=== PATIENT | female | born 1995 | race Caucasian/White ===

== ENCOUNTER 2019-03-28 22:56 | Emergency (ER) | payer BC, SELFPAY ==
[2019-03-28 22:58] VITALS: BP 159/91; PULSE 98; RESP 18; TEMP 36.2; O2SAT 98; BMI 34.9
--- NOTE | 2019-03-28 23:23 | ED.DCSUM_ITS ---
- ER Visit Summary Date of Service: 03/28/19 Chief Complaint: Laceration History of Present Illness: The patient is a 23 F who cut her left index finger on hedge tremors about 6 hours ago. Unknown tetanus status. Physical Examination: Patient is a 1.5 cm partial-thickness laceration over the proximal phalanx of her left index finger, radial side. Neurovascular intact distally. Good range of motion. No deformities. No other findings. Test Results: None indicated Emergency Department Course and Treatment: Tetanus updated. Prophylactic treatment with Keflex. Digital block was performed. Wound was cleaned and explored. Closed with 2 simple interrupted sutures. Prescribed Keflex. Given wound care instructions. Outpatient follow-up. Return right away for any complications like infection. Treatment Plan: As above Disposition: Discharge Impression: 1. 1.5 cm laceration left index finger, simple This note was generated with [employer] dictation software. It may contain incorrect words, spelling, and punctuation that were not noted in review of the chart prior to signing ED Disposition - Plan for ED Patient: Referrals: NOT,DEFINED [Primary Care Provider] -
--- NOTE | 2019-03-28 23:23 | ED.DEP ---
ED Disposition - Plan for ED Patient: Instructions: ED Laceration Hand Prescriptions: Cephalexin [Keflex] 500 mg PO Q6 3 Days #12 cap Referrals: NOT,DEFINED [Primary Care Provider] -
[2019-03-28] MEDS: Diphth,Pertuss(Acell),Tet Vac 0.5 ML Vial IM (23:29)
[2019-03-28] MEDS: Cephalexin 250 MG Capsule 500 MG PO (23:29)
[2019-03-28 23:51] VITALS: BP 159/91; PULSE 98; RESP 18; O2SAT 98
== END 2019-03-28 23:51 | disposition home or self-care (01) ==
LOC: ED 23:28
PROVIDERS: Emergency Provider Emergency Medicine
DX: S61.211A Laceration without foreign body of left index finger without damage to nail, initial encounter (principal); W26.8XXA Contact with other sharp object(s), not elsewhere classified, initial encounter; Y93.9 Activity, unspecified; Y92.9 Unspecified place or not applicable
CPT/HCPCS: 12001; 90471; 90715; 99284

== ENCOUNTER 2025-07-19 10:57 | Observation (INO) | payer BC, SELFPAY ==
[2025-07-19] VITALS (7 sets, daily range): BP systolic 117–131; BP diastolic 71–87; PULSE 80–98; RESP 15–18; TEMP 36.1–37.7; O2SAT 95–100; BMI 36.1; BMI 36.8
--- NOTE | 2025-07-19 11:46 | US_ITS ---
PROCEDURE: GALLBLADDER N/A REASON FOR EXAM: PAIN Epigastric and right upper quadrant pain. TECHNIQUE: Procedure Code: Ultrasound modality: US Procedure: GALLBLADDER COMPARISON: None FINDINGS: Liver: Diffusely echogenic suggesting fatty infiltration. Gallbladder: Solitary gallstone measuring 1 cm x 0.7 cm x 0.6 cm. Trace amount of pericholecystic fluid. Common bile duct: Normal measuring 3 mm . Pancreas: Obscured by bowel gas. Other: Visualized portions of the right kidney are unremarkable. No right upper quadrant ascites. US/Gallbladder IMPRESSION: Fatty infiltration of the liver. Solitary gallstone. Trace amount of pericholecystic fluid. Reading Location: [facility]
--- NOTE | 2025-07-19 11:46 | ED.VIS.GI ---
HPI HPI - GI History of Present Illness Chief Complaint: Abd Pain Detail of Chief Complaint: Epigastric and right upper quadrant abdominal pain. Informant: patient and spouse/S.O. Abdominal Pain/Flank Pain Onset: Days Context: Gradual Onset Timing: Intermittent Quality: Aching Location: Epigastric and RUQ Current Severity: Mild Maximum Severity: Mild Nausea/Vomiting/Emesis GI Symptom: Positive for Nausea and Vomiting Quality: Negative for Blood streaks, Coffee ground or Hematemesis Severity: Mild Diarrhea/Melena/Hematochezia GI Symptom: Positive for Diarrhea Stool Quality: Positive for Loose; Negative for Black, Maroon or BRB per rectum Severity: Mild Associated Symptoms Associated Symptoms: Negative for Dysuria, Frequency, Hematuria or Urgency Narrative Narrative: 29-year-old female no CeeNU past medical history. No prior abdominal or pelvic surgeries. States she has had epigastric and mild right upper quadrant abdominal pain since Thursday around 3 PM. Associated nausea, vomiting diarrhea yesterday. No melena. No hematemesis. No recent weight loss. No prior abdominal or pelvic surgeries. [facility] recently had a workup that was basically negative with a negative CAT scan. She believes they thought she may have an ulcer. She is concerned it could be her gallbladder due to her mother and brother both had cholecystectomies. She denies any fever. No dysuria. I reviewed the labs and CAT scan from the outside facility that were done around the . Prior similar symptoms: Yes Recent Illness/Hospitalization: No PFSH PFSH Medical History no medical history no medical history Home Medications Medication Instructions Recorded Last Taken Type NK 07/19/25 Unknown History Allergy/AdvReac Type Severity Reaction Status Date / Time No Known Allergies Allergy Verified 07/19/25 11:12 Family History Maternal Grandfather Colon cancer Grandfather Stomach cancer Surgical History no surgical history Social History household members: spouse Smoking Status: Former smoker ROS ROS ED ROS Narrative Abdominal pain. Nausea vomiting and diarrhea. Constitutional Constitutional ED: Denies chills, fever(s) or subjective ENT ENT ED: Denies ear pain Cardiovascular Cardiovascular: Denies chest pain Respiratory/Chest Respiratory/Chest: Denies cough or dyspnea Gastrointestinal Gastrointestinal: Reports abdominal pain, diarrhea, nausea and vomiting; Denies constipation or melena Genitourinary Genitourinary ED: Denies dysuria or hematuria Musculoskeletal Musculoskeletal: Denies arthralgias Integumentary Denies abscess Neurologic Neurologic: Denies headache(s) Psychiatric Psychiatric: Denies anxiety Endocrine Endocrinology: Denies polydipsia Hematologic/Lymphatic Hematologic/Lymphatic: Denies easy bleeding Allergic/Immunologic Allergic/Immunologic ED: Denies mouth swelling, tongue swelling or urticaria EXAM Physical Exam Narrative Exam Narrative: 29-year-old female vital signs are stable afebrile. She is in no acute distress. Significant other is at the bedside. H EENT exam pupils round react to light. Moist mutes membranes. Neck nontender. No lymphadenopathy. Lungs clear to auscultation bilaterally. Heart regular rhythm no murmur. Chest wall ribs nontender. Abdomen soft nondistended normal bowel sounds without peritoneal signs. She has mild epigastric and right upper quadrant tenderness with no Moore sign. No hernia or mass. No obstruction. Right lower quadrant is completely nontender. Moving all 4 extremities. Normal strength. Nontender no edema. Back nontender. Neurologically she is awake alert. Answering questions and following commands. Const Vital Signs: 07/19/25 10:58 07/19/25 14:00 Temperature 96.9 F L Temperature Source Temporal Pulse Rate 94 82 Respiratory Rate 16 15 Blood Pressure 128/75 H 131/74 H Blood Pressure Mean 92 93 Pulse Ox 100 100 Oxygen Delivery Method Room Air Positive well nourished and well developed; Negative for cachectic, contractures or unkempt General Appearance ED: well developed and NAD; Negative for unkempt, cachectic, contractures or pallor Nutritional Appearance: Negative for cachectic HEENT Reports moist mucous membranes normocephalic and atraumatic Eyes EOMs intact bilaterally Neck no lymphadenopathy, supple and no JVD Resp normal respiratory effort and clear to auscultation bilaterally Cardio regular rate, regular rhythm, S1 normal heart sound, S2 normal heart sound and no murmurs GI non-distended and no masses; Negative for non-tender GI Narrative: Mild epigastric and right upper quadrant tenderness. No Moore sign. No peritoneal signs. Inspection: Negative for abdominal distention Auscultation: normoactive bowel sounds Palpation: soft and tender; Negative for guarding, rigid, hepatomegaly, splenomegaly, hernia, mass, pulsatile mass or rebound tenderness present Back/Spine no CVA tenderness Extremity full ROM General Extremety ED: Negative for edema or tenderness General Extremity: Negative for edema Neuro CN's II-XII intact bilaterally and moves all extremities Sensorium / Orientation: alert, oriented to person, oriented to place and oriented to time Motor Exam: strength 5/5 throughout Psych mental status grossly normal and thought process normal Appearance: Negative for unkempt Skin no wounds General Skin Exam: Negative for jaundice or pallor Rashes: no rashes MDM MDM MDM Narrative Medical decision making narrative: 29-year-old female with abdominal pain. Exam history are consistent with a possible gastritis versus reflux versus gallbladder disease. I do not think appendicitis. Clinically does not have obstruction. She is already had a CAT scan and labs at the other facility which I have reviewed. She will be given GI cocktail and Protonix. Screening labs and an ultrasound of the right upper quadrant. She already had a negative test several days ago. Repeat exam at around 2:46 PM patient does seem to be having more right upper quadrant abdominal pain. With deep palpation she has pain but not a Moore sign. She has elevated white count. General surgery on page. I spoke to Dr. Heri Zaman of general surgery. To be done evaluate the patient. The current plan is to admit her for cholecystectomy. History & Record Review Discussion w/independent historian: Family Additional record(s) reviewed:: Prior inpatient record, Prior outpatient record, Prior ED visit and Prior labs Lab Data Attestation: I reviewed the patient's lab results. Lab results narrative: CBC shows a white count of 21.3. H&H 12 and 37. Platelets 322. Electrolytes show gap 15. BUN and creatinine of 5 and 0.5. Glucose 124. Liver enzymes show an elevated AST of 38. Elevated ALT of 75. Lipase is 12. Gallbladder ultrasound shows a solitary gallstone. Only trace PeriCholecystic fluid. Labs: Laboratory Results - last 24 hr 07/19/25 12:15 WBC 21.3 H RBC 4.50 Hgb 12.5 Hct 37.0 MCV 82.2 MCH 27.8 MCHC 33.8 RDW Std Deviation 40.6 RDW Coeff of Delaney 13.6 Plt Count 322 MPV 9.7 Immature Gran % (Auto) 0.500 Neut % (Auto) 79.1 H Lymph % (Auto) 4.8 L Meeker % (Auto) 8.2 Eos % (Auto) 7.2 H Baso % (Auto) 0.2 Absolute Neuts (auto) 16.9 H Absolute Lymphs (auto) 1.02 Nucleated RBC % 0 Platelet Estimate ADEQUATE Sodium 135 Potassium 3.3 Chloride 98 Carbon Dioxide 22.2 Anion Gap 15 BUN 5 Creatinine 0.59 L Estim Creat Clear Calc 166.28 Est GFR (MDRD) Non-Af 123 BUN/Creatinine Ratio 8.4 L Glucose 124 H Calcium 9.5 Total Bilirubin 0.92 AST 38 H ALT 75 H Alkaline Phosphatase 60 Total Protein 7.3 Albumin 4.2 Globulin 3.0 Albumin/Globulin Ratio 1.4 Lipase 12 L Radiography Diagnostic Testing: Clinical Impression(s) from Imaging Studies Gallbladder Ultrasound 07/19/25 11:46 IMPRESSION: Fatty infiltration of the liver. Solitary gallstone. Trace amount of pericholecystic fluid. Reading Location: [facility] Discharge Plan Triage Chief Complaint: Abd Pain ED Provider: Mal Tran Dx/Rx/DC Orders Clinical Impression: Abdominal pain, Leukocytosis, Gallstone Prescriptions: No Action NK Primary Care Provider: Chuckie Ochoa Referrals: Care Physician,No Primary [Non-Staff] - Print Language: [place]ese Disposition Disposition: [facility]
[2025-07-19] MEDS: Lidocaine 2% Viscous15 ML UDC 15 ML PO (11:57)
[2025-07-19 12:20] LABS: Hematocrit 37.0 % (37-47); Hemoglobin 12.5 g/dL (12.0-15.0); Immature Granulocytes Count 0.100 X10^3/uL (0.0-0.0); Mean Corp Hgb Conc 33.8 g/dL (32-36); Mean Corpuscular Volume 82.2 fL (81-99); Mean Platelet Vol. 9.7 fl (6.2-12.0); NRBC Flagged by Analyzer 0 % (0-5); POSITIVE DIFFERENTIAL YES; POSITIVE MORPHOLOGY YES; Platelet Count 322 K/mm3 (150-450); RBC Distribution Width CV 13.6 % (11.6-14.6); RBC Distribution Width SD 40.6 fl (35.1-43.9); Red Blood Count 4.50 M/mm3 (4.2-5.4); White Blood Count 21.3 K/mm3 (4.4-11.0)
[2025-07-19 12:59] LABS: AST(SGOT) 38 U/L (<=31); Alanine Aminotransfer ALT/SGPT 75 U/L (<=34); Albumin, Serum 4.2 g/dL (3.5-5.0); Alkaline Phosphatase 60 U/L (35-104); Anion Gap 15 (5-15); BUN 5 mg/dL (4-19); BUN/Creat Ratio 8.4 RATIO (10-20); Calcium,Total 9.5 mg/dL (7.6-11.0); Carbon Dioxide 22.2 mmol/L (21.0-32.0); Chloride 98 mmol/L (98-108); Estimated Creatinine Clearance 166.28 ml/min (50-250); Globulin 3.0 g/dL (2.2-4.2); Glucose 124 mg/dL (70-99); Lipase 12 U/L (13-75); Potassium 3.3 mmol/L (3.3-5.1)
[2025-07-19 13:38] LABS: Differential Indicated SCAN CRITERIA MET
[2025-07-19] MEDS: Ketorolac 30 MG/ML Syringe IV (15:23)
--- NOTE | 2025-07-19 16:12 | HP.PCM_ITS ---
HPI - General General Date of Admission: 07/19/25 Date of Service: 07/19/25 Chief Complaint: Right upper quadrant abdominal pain HPI Narrative CON ANN, is a 29 F who presented to the emergency department at [facility] this afternoon with complaints of right upper quadrant pain for the past 2 to 3 days. Along with right upper quadrant pain, she has also been having nausea and vomiting.. She states she has have been having similar pain off and on for the past 6 months. She presented to [facility] earlier this week with similar complaints. Workup apparently was unremarkable including a CT scan. She was discharged to home. Pain continued and she presented to the emergency department today. Laboratory values revealed slightly elevated AST and ALT. However, her white blood cell count was 21,000. Ultrasound of the right upper quadrant revealed trace pericholecystic fluid and a solitary gallstone. Due to the pain and white blood cell count, she was subsidy admitted with surgical consultation was obtained [facility] Medical History no medical history Home Medications Medication Instructions Recorded Last Taken Type NK 07/19/25 Unknown History Allergy/AdvReac Type Severity Reaction Status Date / Time No Known Allergies Allergy Verified 07/19/25 11:12 Family History Maternal Grandfather Colon cancer Grandfather Stomach cancer Surgical History no surgical history Social History household members: spouse Smoking Status: Former smoker Vital Signs Vital Signs Vital Signs: 07/19/25 10:58 07/19/25 14:00 07/19/25 16:00 Temperature 96.9 F L Temperature Source Temporal Pulse Rate 94 82 80 Respiratory Rate 16 15 15 Blood Pressure 128/75 H 131/74 H 127/71 H Blood Pressure Mean 92 93 89 Pulse Ox 100 100 100 Oxygen Delivery Method Room Air 07/19/25 16:09 Temperature 97.9 F Temperature Source Pulse Rate 80 Respiratory Rate 15 Blood Pressure 127/71 H Blood Pressure Mean 89 Pulse Ox 100 Oxygen Delivery Method Weight Weight: 224 lb 1.6 oz Body Mass Index (BMI) 36.1 Physical Exam Narrative She is alert and oriented x 3. She is in no acute distress. Head is normocephalic and atraumatic. Pupils equal round and reactive to light. No respiratory distress. Abdomen is soft and nondistended. Mild to moderate right upper quadrant tenderness to palpation. No rebound or guarding Results Medical Records Data Attestation: I reviewed the patient's medical records Lab / Micro Data Attestation: I reviewed the patient's lab results. 07/19/25 12:15 07/19/25 12:15 Labs: Laboratory Results - last 24 hr 07/19/25 12:15: WBC 21.3 H, RBC 4.50, Hgb 12.5, Hct 37.0, MCV 82.2, MCH 27.8, MCHC 33.8, RDW Std Deviation 40.6, RDW Coeff of Delaney 13.6, Plt Count 322, MPV 9.7, Immature Gran % (Auto) 0.500, Neut % (Auto) 79.1 H, Lymph % (Auto) 4.8 L, Vilas % (Auto) 8.2, Eos % (Auto) 7.2 H, Baso % (Auto) 0.2, Absolute Neuts (auto) 16.9 H, Absolute Lymphs (auto) 1.02, Nucleated RBC % 0, Platelet Estimate ADEQUATE, Sodium 135, Potassium 3.3, Chloride 98, Carbon Dioxide 22.2, Anion Gap 15, BUN 5, Creatinine 0.59 L, Estim Creat Clear Calc 166.28, Est GFR (MDRD) Non- Af 123, BUN/Creatinine Ratio 8.4 L, Glucose 124 H, Calcium 9.5, Total Bilirubin 0.92, AST 38 H, ALT 75 H, Alkaline Phosphatase 60, Total Protein 7.3, Albumin 4.2, Globulin 3.0, Albumin/Globulin Ratio 1.4, Lipase 12 L Imaging Radiology Impression Gallbladder Ultrasound 07/19/25 11:46 IMPRESSION: Fatty infiltration of the liver. Solitary gallstone. Trace amount of pericholecystic fluid. Reading Location: [id number] Assessment & Plan Assessment/Plan (1) Gallstone: (2) Leukocytosis: (3) Abdominal pain: PLAN: Plan The patient is a 29-year-old otherwise healthy female who presents with several day history of right upper quadrant pain, leukocytosis and a ultrasound of the right upper quadrant showing trace pericholecystic fluid. Her symptoms seem to be consistent with biliary colic. As a result I have recommended admission and proceeding with laparoscopic cholecystectomy tomorrow. We discussed the details of the planned procedure and she wishes to proceed. I will allow her to have clear liquids up until midnight tonight and n.p.o. thereafter. Will keep her on antibiotics as well.
[2025-07-19] MEDS: Dextrose 5%/0.9% NaCl 1,000 ML 80 ML IV (17:48)
[2025-07-19 21:45] LABS: Internal QC Validated? YES +Cl - CLEAR BKGD; Pregnancy, Urine Negative Negative; Record Kit Lot#,Urine Preg 0000964736
[2025-07-19] MEDS: Piperacil/Tazobactam 3.375 GM in 0.9% Normal Saline (50mL MB+) 50 ML IV (21:50)
[2025-07-20] VITALS (16 sets, daily range): BP systolic 114–141; BP diastolic 64–91; PULSE 78–105; RESP 16–18; TEMP 36.3–37.7; O2SAT 89–98; BMI 36.8
[2025-07-20] MEDS: Piperacil/Tazobactam 3.375 GM in 0.9% Normal Saline (50mL MB+) 50 ML IV ×3 (05:04→21:05)
[2025-07-20] MEDS: Dextrose 5%/0.9% NaCl 1,000 ML 80 ML IV ×2 (05:06→17:45)
[2025-07-20 05:07] LABS: Hematocrit 34.9 % (37-47); Hemoglobin 11.5 g/dL (12.0-15.0); Immature Granulocytes Count 0.060 X10^3/uL (0.0-0.0); Mean Corp Hgb Conc 33.0 g/dL (32-36); Mean Corpuscular Volume 83.1 fL (81-99); Mean Platelet Vol. 10.1 fl (6.2-12.0); NRBC Flagged by Analyzer 0 % (0-5); POSITIVE DIFFERENTIAL YES; Platelet Count 284 K/mm3 (150-450); RBC Distribution Width CV 13.7 % (11.6-14.6); RBC Distribution Width SD 41.6 fl (35.1-43.9); Red Blood Count 4.20 M/mm3 (4.2-5.4); White Blood Count 14.8 K/mm3 (4.4-11.0)
[2025-07-20 05:10] LABS: Differential Indicated SCAN CRITERIA MET
[2025-07-20 05:48] LABS: AST(SGOT) 59 U/L (<=31); Alanine Aminotransfer ALT/SGPT 100 U/L (<=34); Albumin, Serum 3.6 g/dL (3.5-5.0); Alkaline Phosphatase 78 U/L (35-104); Anion Gap 12 (5-15); BUN 6 mg/dL (4-19); BUN/Creat Ratio 9.3 RATIO (10-20); Calcium,Total 8.7 mg/dL (7.6-11.0); Carbon Dioxide 24.9 mmol/L (21.0-32.0); Chloride 102 mmol/L (98-108); Estimated Creatinine Clearance 144.86 ml/min (50-250); Globulin 2.7 g/dL (2.2-4.2); Glucose 106 mg/dL (70-99); Potassium 3.2 mmol/L (3.3-5.1)
[2025-07-20 05:55] LABS: Differential Comment SCANNED
--- NOTE | 2025-07-20 06:00 | EKG12_ITS ---
Test Reason : PRE-OP Blood Pressure : */* mmHG Vent. Rate : 98 BPM Atrial Rate : 98 BPM P-R Int : 154 ms QRS Dur : 86 ms QT Int : 356 ms P-R-T Axes : 22 1 -17 degrees QTcB Int : 454 ms Normal sinus rhythm T wave abnormality, consider anterior ischemia Abnormal ECG No previous ECGs available Confirmed by Michael Wilson ([id number]), video editor WILFREDO ALVARES ([id number]) on 07/25/2025 5:48:25 AM Referred By: Confirmed By: Michael Wilson
[2025-07-20] MEDS: 0.9% Saline Lock 10 ML Syringe IV ×2 (07:51→16:55)
--- NOTE | 2025-07-20 07:57 | PCM.PN.SRG ---
Subjective Subjective Patient evaluated resting comfortably in bed. She notes pain has improved over night. She denies any current nausea, vomiting, fever. She is currently scheduled for a lap isidro with Dr. Zaman today at 1130. Objective Data Objective Data Vital Signs: Vital Signs Temp Pulse Resp BP Pulse Ox O2 Del Method 98.5 F 88 16 114/64 92 Room Air 07/20/25 02:23 07/20/25 02:23 07/20/25 02:23 07/20/25 02:23 07/20/25 02:23 07/20/25 02:23 Oxygen Delivery Method Room Air Weight: 221 lb Body Mass Index (BMI) 36.8 Intake & Output: Intake and Output for Last 24 Hours 07/18/25 07/19/25 07/20/25 23:59 23:59 23:59 Intake Total 250 / 550 1304 / 1304 Balance 250 / 550 1304 / 1304 Lab / Micro Data 07/20/25 04:40 07/20/25 04:40 Labs: Laboratory Results - last 24 hr 07/19/25 12:15: WBC 21.3 H, RBC 4.50, Hgb 12.5, Hct 37.0, MCV 82.2, MCH 27.8, MCHC 33.8, RDW Std Deviation 40.6, RDW Coeff of Delaney 13.6, Plt Count 322, MPV 9.7, Immature Gran % (Auto) 0.500, Neut % (Auto) 79.1 H, Lymph % (Auto) 4.8 L, Towns % (Auto) 8.2, Eos % (Auto) 7.2 H, Baso % (Auto) 0.2, Absolute Neuts (auto) 16.9 H, Absolute Lymphs (auto) 1.02, Nucleated RBC % 0, Platelet Estimate ADEQUATE, Sodium 135, Potassium 3.3, Chloride 98, Carbon Dioxide 22.2, Anion Gap 15, BUN 5, Creatinine 0.59 L, Estim Creat Clear Calc 166.28, Est GFR (MDRD) Non-Af 123, BUN/Creatinine Ratio 8.4 L, Glucose 124 H, Calcium 9.5, Total Bilirubin 0.92, AST 38 H, ALT 75 H, Alkaline Phosphatase 60, Total Protein 7.3, Albumin 4.2, Globulin 3.0, Albumin/Globulin Ratio 1.4, Lipase 12 L 07/19/25 21:25: Urine Test Negative 07/20/25 04:40: WBC 14.8 H, RBC 4.20, Hgb 11.5 L, Hct 34.9 L, MCV 83.1, MCH 27.4, MCHC 33.0, RDW Std Deviation 41.6, RDW Coeff of Delaney 13.7, Plt Count 284, MPV 10.1, Immature Gran % (Auto) 0.400, Neut % (Auto) 82.9 H, Lymph % (Auto) 5.8 L, Towns % (Auto) 10.5 H, Eos % (Auto) 0.1, Baso % (Auto) 0.3, Absolute Neuts (auto) 12.3 H, Absolute Lymphs (auto) 0.86, Nucleated RBC % 0, Differential Comment SCANNED, Sodium 138, Potassium 3.2 L, Chloride 102, Carbon Dioxide 24.9, Anion Gap 12, BUN 6, Creatinine 0.66 L, Estim Creat Clear Calc 144.86, Est GFR (MDRD) Non-Af 120, BUN/Creatinine Ratio 9.3 L, Glucose 106 H, Calcium 8.7, Total Bilirubin 1.19, AST 59 H, ALT 100 H, Alkaline Phosphatase 78, Total Protein 6.3, Albumin 3.6, Globulin 2.7, Albumin/Globulin Ratio 1.3 Radiography Diagnostic Testing: Radiology Impression Gallbladder Ultrasound 07/19/25 11:46 IMPRESSION: Fatty infiltration of the liver. Solitary gallstone. Trace amount of pericholecystic fluid. Reading Location: [facility] Physical Exam GI GI Narrative: Abdomen- soft Assessment & Plan Assessment/Plan (1) Leukocytosis: (2) Gallstone: (3) Abdominal pain: (4) Abnormal EKG: PLAN: Plan I am following this patient in conjunction with Dr. Zaman. He will independently evaluate this patient. Labs reviewed. WBC decreased. Liver enzymes trending up. Potassium 3.2. Replaced IV currently. Pre-op EKG was completed. T wave inversion is noted. No previous EKG to review. Discussed with anesthesia, Dr. Dawkins. He recommended troponin series. Discussed patient with Dr. Zaman, he is in agreement with Dr. Dawkins's recommendation and he would like cardiology consulted also. I spoke with Dr. Bell from cardiology to review patient and provide clearance to proceed with the proposed cholecystectomy for today. We will keep patient on the schedule unless patient is not deemed fit to proceed by cardiology. Patient with no personal previous cardiac history. All the above has been discussed with the patient and her entirely. Patient is in agreement and appreciative. We will continue IV antibiotics at this time We will continue to monitor this patient and provide updates with plan of care Charges/Coding Visit Charges Inpatient E&M: 37265 Subs Hosp L2
--- NOTE | 2025-07-20 08:28 | ECHOD_ITS ---
Reason For Study Reason For Study: Abnormal EKG Procedure This was a 2D Doppler, Color Flow transthoracic echocardiogram. Exam performed portable in patient room. Left Ventricle Normal size and thickness. Left ventricular systolic function is normal. The left ventricular ejection fraction is 60 %. Normal diastololic function. Right Ventricle Normal right ventricle. Atria The left and right atria are normal. Mitral Valve Trivial mitral valve insufficiency. Tricuspid Valve Normal tricuspid valve. Unable to estimate RV systolic pressure due to inadequate jet, pulmonary artery pressure probably normal. Aortic Valve Trisinus/trileaflet aortic valve. Pulmonic Valve The pulmonic valve is not well visualized. Great Vessels Normal sized aortic root. Pericardium/Pleural No pericardial effusion. MMode/2D Measurements & Calculations LVIDd: 5.1 cm IVSd: 0.90 cm Ao root diam: 2.9 cm LVIDs: 3.3 cm LVPWd: 1.1 cm RVDd: 4.3 cm FS: 34.5 % LAV(MOD-bp): 39.6 ml LVAd ap4: 29.0 cm2 SV(MOD-sp4): 57.9 ml LAV(MOD-bp) Indexed: 19.2 ml/m2 LVLd ap4: 7.5 cm SI(MOD-sp4): 28.1 ml/m2 LAV(MOD-sp2): 42.9 ml EDV(MOD-sp4): 92.1 ml LAV(MOD-sp4): 36.1 ml EDV(sp4-el): 95.4 ml LVAs ap4: 15.6 cm2 LVLs ap4: 6.2 cm ESV(MOD-sp4): 34.2 ml ESV(sp4-el): 32.9 ml EF(MOD-sp4): 62.9 % EF(sp4-el): 65.6 % SV(sp4-el): 62.6 ml LA A4 area: 15.2 cm2 LA dimension(2D): 4.0 cm RA A4 area: 16.0 cm2 TAPSE: 2.0 cm Time Measurements MV dec time: 0.21 sec Doppler Measurements & Calculations MV E max lennox: 66.7 cm/sec Lat Peak E' Lennox: 12.2 cm/sec Med Peak E' Lennox: 9.1 cm/sec MV A max lennox: 62.6 cm/sec E/E' lat: 5.5 E/E' med: 7.3 MV E/A: 1.1 MV V2 max: 89.1 cm/sec MV P1/2t max lennox: 89.1 cm/sec Ao V2 max: 133.7 cm/sec MV max P.2 mmHg MV P1/2t: 77.6 msec Ao max P.1 mmHg MV V2 mean: 54.1 cm/sec Ao V2 mean: 93.9 cm/sec MV mean P.4 mmHg MV dec slope: 336.1 cm/sec2 Ao mean P.0 mmHg MV V2 VTI: 19.4 cm MVA(P1/2t): 2.8 cm2 Ao V2 VTI: 22.6 cm AV (velocity ratio): 0.92 LV V1 max: 109.6 cm/sec PA V2 max: 128.5 cm/sec LV V1 max P.8 mmHg PA V2 mean: 92.3 cm/sec LV V1 mean P.4 mmHg LV V1 mean: 70.9 cm/sec LV V1 VTI: 20.7 cm ECHO/Echo Complete Interpretation Summary The left ventricular ejection fraction is 60 %. Ordering Physician: Darshan Bell Performed By: Hamlet Arroyo RCS
[2025-07-20] MEDS: Potassium Chloride 10mEq/100mL 10 MEQ/100 ML IV.SOLN. 100 MEQ IV BOLUS ×3 (09:13→11:36)
--- NOTE | 2025-07-20 09:16 | CON.PCM.CA_ITS ---
Assessment & Plan Assessment/Plan (1) Preoperative cardiovascular examination: PLAN: Patient does not have any angina. She has T wave inversions on ECG that that could be result of her hyperadrenergic state with acute cholecystitis and abdominal pain. To rule out cardiac pathology, I will check an echocardiogram for her. Troponins have also been ordered for the patient. If both of these failed to show any significant abnormalities, then the patient may proceed with the proposed laparoscopic cholecystectomy. (2) Abnormal EKG: PLAN: ECG shows T wave inversions in anterior and inferior leads. This could denote ischemia, however with her acute cholecystitis and abdominal pain, this is more likely secondary to hyperadrenergic state and autonomic nervous system stimulation. Check echocardiogram. Cardiac troponins have already been ordered for the patient. See #1 above. (3) Gallstone: PLAN: On IV antibiotics for possible cholecystitis. Being contemplated for cholecystectomy. (4) Abdominal pain: PLAN: See #3 above. HPI Consult Data Date of Consult: 07/20/25 HPI Narrative Reason for Consultation: Preoperative cardiovascular examination HPI Narrative: 29-year-old female with no significant past medical history. She has been admitted with right upper quadrant and epigastric discomfort that started on Thursday. Constant. Initially with some nausea and vomiting as well. According to her, there was some radiation to the back. No shortness of breath. No chest pain. No arm neck or jaw discomfort. Patient's workup revealed solitary gallstone. Her white cell count was up to 21,000. Subsequently she has been admitted with diagnosis of cholecystitis and biliary colic. Laparoscopic cholecystectomy is planned for today. As part of her preop workup, an ECG was done. This showed T wave changes in inferior and anterior leads. Subsequently we have been asked for evaluation of her cardiac risk for the proposed procedure. Patient denies any previous history of heart disease. No history of angina either at rest or with exertion. No shortness of breath at rest or with exertion. No orthopnea. No PND. No ankle edema. No palpitations. No syncope or presyncope. No history of sudden cardiac in the family. Lifelong non- smoker. No EtOH or illicit substance abuse. Prior to this hospitalization, patient was previously active and could climb 2 flights of stairs without any issues. [facility] Medical History (Updated 07/20/25 @ 09:[address] Darshan Bell MD) CPAP (continuous positive airway pressure) dependence Medical History no medical history Home Medications Medication Instructions Recorded Last Taken Type NK 07/19/25 Unknown History Allergy/AdvReac Type Severity Reaction Status Date / Time No Known Allergies Allergy Verified 07/19/25 11:12 Family History Maternal Grandfather Colon cancer Grandfather Stomach cancer Surgical History no surgical history Social History household members: spouse Smoking Status: Former smoker Physical Exam Narrative Comfortable. No apparent distress. Heart sounds 1 and 2 noted. No rub. 2/6 systolic murmur at base. Chest clear to auscultation bilaterally. Alert oriented x 3. No ankle edema. Objective Data Vital Signs: Vital Signs Temp Pulse Resp BP Pulse Ox O2 Del Method 98.5 F 88 16 114/64 92 Room Air 07/20/25 02:23 07/20/25 02:23 07/20/25 02:23 07/20/25 02:23 07/20/25 02:23 07/20/25 02:23 Oxygen Delivery Method Room Air Weight: 221 lb Body Mass Index (BMI) 36.8 Intake & Output: Intake and Output for Last 24 Hours 07/18/25 07/19/25 07/20/25 23:59 23:59 23:59 Intake Total 250 / 550 1304 / 1304 Balance 250 / 550 1304 / 1304 Lab / Micro Data 07/20/25 04:40 07/20/25 04:40 Labs: Laboratory Results - last 24 hr 07/19/25 12:15: WBC 21.3 H, RBC 4.50, Hgb 12.5, Hct 37.0, MCV 82.2, MCH 27.8, MCHC 33.8, RDW Std Deviation 40.6, RDW Coeff of Delaney 13.6, Plt Count 322, MPV 9.7, Immature Gran % (Auto) 0.500, Neut % (Auto) 79.1 H, Lymph % (Auto) 4.8 L, [place] % (Auto) 8.2, Eos % (Auto) 7.2 H, Baso % (Auto) 0.2, Absolute Neuts (auto) 16.9 H, Absolute Lymphs (auto) 1.02, Nucleated RBC % 0, Platelet Estimate ADEQUATE, Sodium 135, Potassium 3.3, Chloride 98, Carbon Dioxide 22.2, Anion Gap 15, BUN 5, Creatinine 0.59 L, Estim Creat Clear Calc 166.28, Est GFR (MDRD) Non- Af 123, BUN/Creatinine Ratio 8.4 L, Glucose 124 H, Calcium 9.5, Total Bilirubin 0.92, AST 38 H, ALT 75 H, Alkaline Phosphatase 60, Total Protein 7.3, Albumin 4.2, Globulin 3.0, Albumin/Globulin Ratio 1.4, Lipase 12 L 07/19/25 21:25: Urine Test Negative 07/20/25 04:40: WBC 14.8 H, RBC 4.20, Hgb 11.5 L, Hct 34.9 L, MCV 83.1, MCH 27.4, MCHC 33.0, RDW Std Deviation 41.6, RDW Coeff of Delaney 13.7, Plt Count 284, MPV 10.1, Immature Gran % (Auto) 0.400, Neut % (Auto) 82.9 H, Lymph % (Auto) 5.8 L, [place] % (Auto) 10.5 H, Eos % (Auto) 0.1, Baso % (Auto) 0.3, Absolute Neuts (auto) 12.3 H, Absolute Lymphs (auto) 0.86, Nucleated RBC % 0, Differential Comment SCANNED, Sodium 138, Potassium 3.2 L, Chloride 102, Carbon Dioxide 24.9, Anion Gap 12, BUN 6, Creatinine 0.66 L, Estim Creat Clear Calc 144.86, Est GFR (MDRD) Non-Af 120, BUN/Creatinine Ratio 9.3 L, Glucose 106 H, Calcium 8.7, Total Bilirubin 1.19, AST 59 H, ALT 100 H, Alkaline Phosphatase 78, Total Protein 6.3, Albumin 3.6, Globulin 2.7, Albumin/Globulin Ratio 1.3 Rhythm Strip Rhythm Strip: Sinus Rhythm Cardiology Labs/Tests 07/19/25 12:15: WBC 21.3 H, RBC 4.50, Hgb 12.5, Hct 37.0, MCV 82.2, MCH 27.8, MCHC 33.8, Plt Count 322, MPV 9.7, Immature Gran % (Auto) 0.500, Neut % (Auto) 79.1 H, Lymph % (Auto) 4.8 L, Dallas % (Auto) 8.2, Eos % (Auto) 7.2 H, Baso % (Auto) 0.2, Absolute Neuts (auto) 16.9 H, Nucleated RBC % 0, Sodium 135, Potassium 3.3, Chloride 98, Carbon Dioxide 22.2, Anion Gap 15, BUN 5, Creatinine 0.59 L, Est GFR (MDRD) Non-Af 123, BUN/Creatinine Ratio 8.4 L, Glucose 124 H, Calcium 9.5, Total Bilirubin 0.92 07/20/25 04:40: WBC 14.8 H, RBC 4.20, Hgb 11.5 L, Hct 34.9 L, MCV 83.1, MCH 27.4, MCHC 33.0, Plt Count 284, MPV 10.1, Immature Gran % (Auto) 0.400, Neut % (Auto) 82.9 H, Lymph % (Auto) 5.8 L, Dallas % (Auto) 10.5 H, Eos % (Auto) 0.1, Baso % (Auto) 0.3, Absolute Neuts (auto) 12.3 H, Nucleated RBC % 0, Sodium 138, Potassium 3.2 L, Chloride 102, Carbon Dioxide 24.9, Anion Gap 12, BUN 6, C reatinine 0.66 L, Est GFR (MDRD) Non-Af 120, BUN/Creatinine Ratio 9.3 L, Glucose 106 H, Calcium 8.7, Total Bilirubin 1.19 Rhythm: EKG: Sinus rhythm. T wave inversions in inferior and anterior leads. ECHO: Stress Test: Cardiac Cath: PCI: CT Surgery: Holter monitor: EPS: PPM: CXR: Chest CT Scan: Radiography Diagnostic Testing: Radiology Impression Gallbladder Ultrasound 07/19/25 11:46 IMPRESSION: Fatty infiltration of the liver. Solitary gallstone. Trace amount of pericholecystic fluid. Reading Location: [facility] Risk Score for UA/STEMI Assesmment (YES = 1) Risk Stratification Applicable: No
[2025-07-20 09:40] LABS: Troponin T High Sensitivity 6 ng/L (<=14)
[2025-07-20] MEDS: INDOCYANINE GREEN 3.75 MG in Syringe 1.5 ML 999 MG IV (11:30)
--- NOTE | 2025-07-20 11:30 | GALL_PTH ---
PATIENT: CON ANN LOC: MS3 U#:[id number] AGE/SX: 29/F [place] [facility] [place]: Dr. Farshad Zaman MD : 1995 BED: 1 DIS: 07/21/2025 SPEC #: [id number] RECD: 07/20/25 14:34 STATUS: BEATRIZ ISSA #: [id number] BRYAN: 07/20/25 11:[address]: Farshad Zaman DEPT: SURGICAL PATHOLOGY RECD BY: Rashawn Basurto ENTERED: 07/20/25 15:20 SP TYPE: ZAMZAM RUSSO DR: MD Chuckie Garcia PA Tissues: A - Gallbladder, NOS Procedures: Surgery Specimen Level III HEADER OPERATION: Robotic cholecystectomy PRE-OP DIAGNOSIS: Gallstone, abdominal pain TISSUE SUBMITTED: A- Gallbladder MICROSCOPIC DIAGNOSIS A. Gallbladder, robotic cholecystectomy: Acute and chronic cholecystitis with hemorrhage, mucosal erosion and cholelithiasis MICROSCOPIC DESCRIPTION Slides are reviewed. GROSS DESCRIPTION A. Received in formalin labeled with the patient's name and date of . Designated as "gallbladder" is a 6.0 x 3.7 x 1.5 cm pink-red, shaggy and disrupted gallbladder. A definitive cystic duct margin is difficult to determine grossly however, the presumed cystic duct margin is inked black and shaved. A lymph node is not present. Opening reveals pink-red to green, ulcerated and diffusely necrotic mucosa with patchy, adherent blood clot and a maximum wall thickness of 0.5 cm. Cholesterolosis is not present. There are few yellow bosselated choleliths and soft, necrotic material within the container; the choleliths range from 0.1 cm to 0.4 cm. Deputy Manager sections are submitted in 1 cassette. AL 07/20/2025 CPT:86458
--- NOTE | 2025-07-20 11:38 | PCM.PRE.AN2 ---
ASA Classification* ASA Classification ASA Classification: 2 Assessment & Plan Anesthesia* Anesthesia Assessment Anesthesia Assessment: Discussed sedation and/or anesthesia options, risks, benefits, and alternatives with patient/parents/legal guardian/POA. Questions invited. The patient/parents/legal guardian/POA seems to understand and agrees to proceed with anesthesia plan. Reviewed the physical assessment, medical history, allergy history and patient home medications list prior to surgery/procedure/anesthetic and documented any changes. Performed airway and anesthesia risk assessments. Anesthesia Type Anesthesia Type: General History Source History Obtained from:: Patient and Chart Anesthesia Focused Assessment* Temperature: 99 F Pulse Rate: 90 Blood Pressure: 141/86 Respiratory Rate: 18 Pulse Ox: 98 Oxygen Delivery Method: Room Air Airway Assessment Mouth opens: >3 cm Mallampati Score: III Teeth Condition: Caps/Crowns (Patient has a crown. It is tight.) Neck Range of motion (ROM): Full ROM Labs Anesthesia Preop lab: CBC WBC 14.8 K/mm3 (4.4-11.0) H 07/20/25 04:40 07/20/25 RBC 4.20 M/mm3 (4.2-5.4) 07/20/25 04:40 07/20/25 Hgb 11.5 g/dL (12.0-15.0) L 07/20/25 04:40 07/20/25 Hct 34.9 % (37-47) L 07/20/25 04:40 07/20/25 Plt Count 284 K/mm3 (150-450) 07/20/25 04:40 07/20/25 CHEMISTRY Potassium 3.2 mmol/L (3.3-5.1) L 07/20/25 04:40 07/20/25 Sodium 138 mmol/L (133-145) 07/20/25 04:40 07/20/25 BUN 6 mg/dL (4-19) 07/20/25 04:40 07/20/25 Creatinine 0.66 mg/dL (0.70-1.20) L 07/20/25 04:40 07/20/25 Glucose 106 mg/dL (70-99) H 07/20/25 04:40 07/20/25 COAG Urine Test Negative Negative 07/19/25 21:25 07/19/25 Pre-Assessment Diagnosis/Proposed Procedure Planned Operative Procedure(s): Laparoscopic cholecystectomy. Anesthesia History Anesthesia History - management consulting: Anesthesia History - management consulting Hx Hospitalization Any Problems With Anesthesia No 07/19/25 21:56 Cholinesterase deficiency No 07/19/25 21:56 You/Your Family Experience No 07/19/25 21:56 fever (hyperthermia) with Relationship Recent Exposure to Contagious No 07/19/25 21:56 Disease Does patient have nerve No 07/19/25 21:56 stimulator Patient instructed to have No 07/19/25 21:56 device shut off --Does patient have Pacemaker No 07/20/25 11:02 or ICD? When Was Last Pacemaker Check QUESTION #4 FULL TEXT: You/Your Family Experience fever (hyperthermia) with Anesthesia Last Oral Intake Last Oral intake: Last Oral Intake NPO since 00:00 07/20/25 11:02 Meds taken in AM with sips of No 07/20/25 11:02 water? Meds patient instructed to take am of surgery PONV PONV - management consulting: PONV - management consulting Female HX of Motion Sickness HX of N/V After Surgery Non-Smoker Duration of Surgery greater than 60 minutes Number of Risk Factors PONV Score Height & Weight Height & Weight: Anesthesia: Height & Weight Height 5 ft 5 in 07/20/25 11:02 Weight: 100.244 kg 07/20/25 11:02 Body Mass Index (BMI) 36.8 07/20/25 11:02 Respiratory Assessment Respiratory Assessment - management consulting: Respiratory Tract Infection Hx - management consulting Hx Respiratory Tract Infection No 07/19/25 21:56 STOP Sleep Apnea STOP Sleep Apnea - management consulting: STOP Sleep Apnea - management consulting Hx Hypertension No 07/19/25 17:01 Hx Sleep Apnea Yes 07/19/25 17:01 CPAP Yes 07/19/25 17:01 BIPAP No 07/19/25 17:01 Do you snore loudly (louder than talking or can be heard Do you often feel tired/ fatigued/ sleepy during daytime? Has anyone observed you stop breathing during sleep? STOP Results Positive 07/19/25 17:01 QUESTION #5 FULL TEXT : Do you snore loudly (louder than talking or can be heard through closed doors)? 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 Specify any problems Hx of Preganancy in last 3 No 07/19/25 17:01 Months Nurse Filling Out Transfusion RKALIKASI 07/19/25 17:01 & Questions: Date: 07/19/25 07/19/25 17:01 Time: 17:11 07/19/25 17:01 Patient unable to answer at this time (ie. confused, unrespo /Reproduction History /Reproductive History - management consulting: /Reproductive Hx- management consulting Hx Now No 07/19/25 21:56 Gestational Age (in weeks): EDC: Hx Hx Para Hx Section SAB No 07/19/25 21:56 Active Medications Active Medications: Current Medications Generic Name Dose Route Start Last Admin Trade Name Freq PRN Reason Stop Dose Admin Acetaminophen 1,000 mg 07/19/25 22:00 07/20/25 05:04 Acetaminophen 500 Mg Tablet PO 1,000 mg Q8 VEE Administration Docusate Sodium 100 mg 07/19/25 17:01 Docusate Sodium 100 Mg Capsule PO BID PRN PRN Constipation Dextrose/Sodium Chloride 1,000 mls @ 80 mls/hr 07/19/25 17:01 07/20/25 05:06 Dextrose 5%/0.9% Nacl IV 80 mls/hr .[id number] VEE Administration Piperacillin Sod/Tazobactam 50 mls @ 12.5 mls/hr 07/19/25 22:00 07/20/25 09:05 Sod 3.375 gm/ Sodium Chloride IV Infused Q8 VEE Infusion Morphine Sulfate 2 - 4 mg 07/19/25 17:01 07/20/25 07:51 Morphine 2 Mg/Ml Syringe IV 2 mg Q3H PRN PRN Administration Pain Score 6-10 Morphine Sulfate 2 - 4 mg 07/19/25 17:08 Morphine 4 Mg/Ml Syringe IV Q3H PRN PRN Pain Score 6-10 Ondansetron HCl 4 mg 07/19/25 17:01 Ondansetron 4 Mg/2 Ml Vial IV Q8H PRN PRN NAUSEA/VOMITING Oxycodone HCl 5 mg 07/19/25 17:01 Oxycodone 5 Mg Tablet PO Q4H PRN PRN Pain Score 4-10 Sodium Chloride 10 - 40 ml 07/19/25 17:16 07/20/25 07:51 0.9% Saline Lock 10 Ml Syringe IV 10 ml UD PRN Administration SALINE FLUSH PFSH Medical History (Updated 07/20/25 @ 09:[address] Darshan Bell MD) CPAP (continuous positive airway pressure) dependence Medical History no medical history Home Medications Medication Instructions Recorded Last Taken Type NK 07/19/25 Unknown History Allergy/AdvReac Type Severity Reaction Status Date / Time No Known Allergies Allergy Verified 07/19/25 11:12 Family History Maternal Grandfather Colon cancer Grandfather Stomach cancer Surgical History no surgical history no surgical history Social History household members: spouse Smoking Status: Former smoker Review of Systems (Anesthesia) ROS Narrative System reviewed and no additional complaints, except as documented.
[2025-07-20 11:39] LABS: Troponin T High Sens 2 HR < 6 ng/L (<=14)
[2025-07-20] MEDS: 0.9% Normal Saline (1000mL) 800 ML IV (11:54)
[2025-07-20] MEDS: Lidocaine 1% (5 ml sdv) 5 ML Vial IV (12:02)
[2025-07-20] MEDS: fentaNYL 100 MCG/2 ML Ampul IV (12:02)
[2025-07-20] MEDS: Bupiv/Epi 0.25% 30 ML Vial (13:52)
--- NOTE | 2025-07-20 14:26 | PCM.POST.ANE ---
Anesthesia: Postop Eval I Current Vital Signs Temperature: 97.3 F Pulse Rate: 105 Blood Pressure: 125/82 Respiratory Rate: 16 Pulse Ox: 93 Oxygen Delivery Method: Nasal Cannula Oxygen Flow Rate (L/min): 3 Assessment Airway patent: Yes Spontaneous unlabored respirations: Yes Mental status: Awake and Calm nausea: No Vomiting: No Anesthesia Complication: No Fluid Hydration Crystalloid volume administer (ml): 800 Total IV fluid infused: 800 Progress Note Anesthesia document: Postop Eval 1 completed: Yes
--- NOTE | 2025-07-20 14:29 | OP.PCM_ITS ---
Problems Associated Problem List Diagnoses (1) Cholecystitis, acute with cholelithiasis: Procedures Digestive 40xxx-49xxx: 12124 Laparoscopic cholecystectomy Operative Report (Standard) Operative Information Date of Procedure: 07/20/25 Pre-Operative Diagnosis: Acute cholecystitis/cholelithiasis Post-Operative Diagnosis: Gangrenous cholecystitis/cholelithiasis Surgery/Procedure Performed: Robotic cholecystectomy with attempted ICG cholangiogram trade facilitator: Yes Child Life Specialist: Malena Valencia Tasks completed by export sales assistant: Closing, Trocar, Retracting and Other Additional talent assistant?: No Type of Anesthesia: General and Local RN Documented Start/Stop Times: Operation Date: 07/20/25 11:30 Case Time Into Pre-Op 07/20/25 11:15 Out of Pre-Op 07/20/25 11:54 Anesthesia Start 07/20/25 11:55 Into Room 07/20/25 11:55 Procedure Start 07/20/25 12:23 Procedure End 07/20/25 14:03 Anesthesia End 07/20/25 14:15 Out of Room 07/20/25 14:15 Into Recovery 07/20/25 14:17 Procedure Start Time: 12:23 Procedure Stop Time: 14:03 Select all DRAINS/GRAFTS/IMPLANTS that apply: Drains Drain details: 10 Hungarian flat VALERY drain x 1 Special Medications: IV Zosyn Estimated Blood Loss: 20 mL Specimen collected: Yes Description of specimen(s) removed: Gallbladder and contents Description of surgery: The patient is a 29-year-old female who presented to the emergency department late yesterday afternoon with several day history of abdominal pain especially in the right upper quadrant. She initially presented to an outside emergency room and apparently had a fairly unremarkable workup. She was told that this may be an ulcer and was discharged home. Several days later she presented to the [facility] emergency department with persistent if not worsening right upper quadrant pain. She was seen today by the ER staff. White blood cell count was found to be 21,000. Her AST and ALT were slightly elevated. I recommended a cholecystectomy as treatment. We discussed the details of the planned procedure and she wished to proceed. We were able to schedule this robotically with cholangiograms. We discussed risks and benefits of the surgery and she wished to proceed. The patient was brought to the operating today following informed consent. Preoperative antibiotics were given and a timeout was performed. She was placed supine on the operative table with arms initially outstretched on arm boards. A general endotracheal anesthesia was induced. Once adequately sedated the abdomen was then prepped and draped in the usual sterile manner. An 8 mm incision was made just below the umbilicus which a 5 mm trocar was placed optically. This was placed without incident. Once in place the abdomen was then fully insufflated with CO2 gas. A 5 mm 0 degree scope was inserted. There were no signs of bowel or vascular injury. Next, another 8 mm trocar was placed under direct visualization on the right side of the abdomen. This was followed by 2 additional left-sided trocars. Both of these were 8 mm. The initial umbilical trocar was switched to a robotic 8 mm trocar as well. This was performed under direct visualization. The patient was then placed with some head up positioning and some roll to the left to improve visualization. The da Gauri robot was then brought onto the operative field and appropriately docked. Once all of the instruments were in place the gallbladder was visualized. The gallbladder was completely encased with adhesed omentum. This omentum peeled down fairly easily, thus exposing the gallbladder. The gallbladder itself was extremely erythematous and friable. Essentially this was necrotic. In the process of trying to grasp the fundus of the gallbladder, a hole developed in the gallbladder wall. This was promptly suction and irrigated. Unfortunately this made being able to complete the ICG cholangiograms not possible. The infundibulum of the gallbladder was exposed. There was quite a bit of inflammation and friability to the tissues. Dissection was carried out mostly with the robotic suction/care process manager tip. This was performed very carefully. Once the infundibulum the gallbladder was more clearly delineated, the right angle hook was used for most of the dissection. I was able to dissect around what appeared to be the cystic duct and cystic artery. In the process of grasping the infundibulum of the gallbladder near a large stone, another small opening in the gallbladder ensued. I was able to suction out the gallstones. This confirmed the infundibulum. The lower aspect of the gallbladder was dissected off of the cystic plate. Unfortunately ICG cholangiograms again were not possible but I have felt that a critical view of safety was able to be performed although the structures were quite friable as well. The duct and artery were both clipped proximally and distally. These were then transected with electrocautery. After doing so, the gallbladder was then removed from the liver bed. This was performed without incident. Once free, the gallbladder was placed into a bag. Any spilled stones were then gathered and placed into the bag. The gallbladder was then able to be removed through the umbilical trocar site. The entire right upper quadrant was then copiously irrigated with several liters of saline until clear. There is no evidence of biliary drainage nor any evidence of bleeding. Hemostasis overall was excellent given the amount of inflammation. A 10 Hungarian VALERY drain was selected to be inserted in the gallbladder fossa. This was brought out through the right sided trocar site. This was secured to the skin using nylon suture. The gallbladder was able to be extracted from the abdominal cavity through the umbilical trocar site. This trocar sites fascia was closed using 0 PDS with the aid of the fascial closure device. This closed the fascia nicely. All counts were correct at this point. The remaining trocars were opened up and insufflation was allowed to escape. The remaining incisions were injected with additional local anesthetic and then closed using 4-0 Vicryl. Skin glue was applied as dressing. She was awakened from anesthesia and taken to recovery in good condition. Surgical Findings: Extremely inflamed, friable and gangrenous gallbladder Complications Complications: No Admit VTE Documentation VTE Present on Admission: No VTE Mechan Device Prophylaxis: SCD's VTE Pharm Prophylaxis ordered?: No Reason prophylaxis not ordered: Treatment Not Indicated
[2025-07-20 17:37] LABS: Troponin T High Sens 4 HR < 6 ng/L (<=14)
--- NOTE | 2025-07-20 19:35 | POSTOPAN2_ITS ---
Anesthesia Postop Eval I Sum Postop Eval Completion status Anesthesia document: Postop Eval 1 completed: Yes Anesthesia Postop Eval I Summary Anesthesia Postop Eval I Summary: Anesthesia Postop Eval I: Assessment Summary Airway patent Yes 07/20/25 14:27 ROCK CRUSHER OPERATOR.[email or web address] Spontaneous unlabored Yes 07/20/25 14:27 ROCK CRUSHER OPERATOR.[email or web address] respirations Mental status Awake,Calm 07/20/25 14:27 ROCK CRUSHER OPERATOR.[email or web address] nausea No 07/20/25 14:27 ROCK CRUSHER OPERATOR.GDOTT Vomiting No 07/20/25 14:27 ROCK CRUSHER OPERATOR.GDOTT Anesthesia Postop Eval I: Fluid Summary Crystalloid volume administer 800 07/20/25 14:27 ROCK CRUSHER OPERATOR.GDOTT (ml) Colloids volume administered ( ml) Blood Product volume administered (ml) Total IV fluid infused 800 07/20/25 14:27 ROCK CRUSHER OPERATOR.GDOTT Anesthesia Postop Eval I: Summary Notes Anesthesia Complication No 07/20/25 14:27 ROCK CRUSHER OPERATOR.GDOTT Anesthesia Complication Comment: Post-operative progress note Anesthesia: Postop Eval II Evaluation Mental status: Awake and Calm Pain Level: 2 nausea: No Vomiting: No Complications Anesthesia Complication: No
--- NOTE | 2025-07-20 19:35 | PCM.POSTANE2 ---
Anesthesia Postop Eval I Sum Postop Eval Completion status Anesthesia document: Postop Eval 1 completed: Yes Anesthesia Postop Eval I Summary Anesthesia Postop Eval I Summary: Anesthesia Postop Eval I: Assessment Summary Airway patent Yes 07/20/25 14:27 [email or web address] [email or web address] Spontaneous unlabored Yes 07/20/25 14:27 SPINDLE [email or web address].[email or web address] respirations Mental status Awake,Calm 07/20/25 14:27 SPINDLE [email or web address].[email or web address] nausea No 07/20/25 14:27 SPINDLE [employer] [email or web address].[email or web address] Vomiting No 07/20/25 14:27 SPINDLE [employer] [email or web address].[email or web address] Anesthesia Postop Eval I: Fluid Summary Crystalloid volume administer 800 07/20/25 14:27 SPINDLE [email or web address].GDOTT (ml) Colloids volume administered ( ml) Blood Product volume administered (ml) Total IV fluid infused 800 07/20/25 14:27 SPINDLE FRAME [email or web address].GDOTT Anesthesia Postop Eval I: Summary Notes Anesthesia Complication No 07/20/25 14:27 SPINDLE FRAME [email or web address].GDOTT Anesthesia Complication Comment: Post-operative progress note Anesthesia: Postop Eval II Evaluation Mental status: Awake and Calm Pain Level: 2 nausea: No Vomiting: No Complications Anesthesia Complication: No
[2025-07-21 00:04] VITALS: BP 126/65; PULSE 85; RESP 16; TEMP 36.7; O2SAT 93
[2025-07-21 03:50] VITALS: BP 117/62; PULSE 67; RESP 16; TEMP 36.8; O2SAT 95
[2025-07-21] MEDS: Piperacil/Tazobactam 3.375 GM in 0.9% Normal Saline (50mL MB+) 50 ML IV (05:13)
[2025-07-21] MEDS: Dextrose 5%/0.9% NaCl 1,000 ML 80 ML IV (05:14)
[2025-07-21 05:53] LABS: Hematocrit 30.9 % (37-47); Hemoglobin 10.2 g/dL (12.0-15.0); Immature Granulocytes Count 0.060 X10^3/uL (0.0-0.0); Mean Corp Hgb Conc 33.0 g/dL (32-36); Mean Corpuscular Volume 84.2 fL (81-99); Mean Platelet Vol. 10.0 fl (6.2-12.0); NRBC Flagged by Analyzer 0 % (0-5); Platelet Count 271 K/mm3 (150-450); RBC Distribution Width CV 13.7 % (11.6-14.6); RBC Distribution Width SD 42.5 fl (35.1-43.9); Red Blood Count 3.67 M/mm3 (4.2-5.4); White Blood Count 14.5 K/mm3 (4.4-11.0)
[2025-07-21 06:31] LABS: AST(SGOT) 44 U/L (<=31); Alanine Aminotransfer ALT/SGPT 120 U/L (<=34); Albumin, Serum 3.2 g/dL (3.5-5.0); Alkaline Phosphatase 81 U/L (35-104); Anion Gap 12 (5-15); BUN 4 mg/dL (4-19); BUN/Creat Ratio 7.2 RATIO (10-20); Calcium,Total 8.4 mg/dL (7.6-11.0); Carbon Dioxide 21.9 mmol/L (21.0-32.0); Chloride 102 mmol/L (98-108); Estimated Creatinine Clearance 164.80 ml/min (50-250); Globulin 2.8 g/dL (2.2-4.2); Glucose 127 mg/dL (70-99); Potassium 3.4 mmol/L (3.3-5.1)
[2025-07-21 08:00] VITALS: BP 125/70; PULSE 79; RESP 16; TEMP 37.1; O2SAT 97
--- NOTE | 2025-07-21 08:52 | EKG12_ITS ---
Test Reason : ABN EKG Blood Pressure : */* mmHG Vent. Rate : 72 BPM Atrial Rate : 72 BPM P-R Int : 156 ms QRS Dur : 90 ms QT Int : 378 ms P-R-T Axes : 32 17 -2 degrees QTcB Int : 413 ms Normal sinus rhythm with sinus arrhythmia MINOR Nonspecific T wave abnormality Borderline When compared with ECG of 20-Jul-2025 05:40, MANUAL COMPARISON REQUIRED DATA IS UNCONFIRMED Confirmed by Michael Wilson ([id number]), editor house organ MELECIO DAVIDSON ([id number]) on 07/24/2025 1:29:56 PM Referred By: PHYLLIS Confirmed By: Michael Wilson
--- NOTE | 2025-07-21 10:03 | PN.CARD_ITS ---
Subjective Subjective Status post laparoscopic cholecystectomy. Uneventful surgery and recovery. Feels better. Denies any complaints this morning. Objective Data Vital Signs: Vital Signs Temp Pulse Resp BP Pulse Ox O2 Del Method O2 Flow Rate 98.8 F 79 16 125/70 H 97 Nasal Cannula 2 07/21/25 08:00 07/21/25 08:00 07/21/25 08:00 07/21/25 08:00 07/21/25 08:00 07/21/25 08:10 07/21/25 08:10 Oxygen Flow Rate (L/min) 2 Oxygen Delivery Method Nasal Cannula Weight: 220 lb 14.451 oz Body Mass Index (BMI) 36.8 Intake & Output: Intake and Output for Last 24 Hours 07/19/25 07/20/25 07/21/25 23:59 23:59 23:59 Intake Total 250 / 550 3555.5 / 3555.5 1368.67 / 1368.67 Output Total 145 / 145 165 / 165 Balance 250 / 550 3410.5 / 3410.5 1203.67 / 1203.67 Lab / Micro Data 07/21/25 04:50 07/21/25 04:50 Labs: Laboratory Results - last 24 hr 07/20/25 11:00: Troponin T Hi Sens 2 Hr < 6 07/20/25 16:15: Troponin T Hi Sens 4Hr < 6 07/21/25 04:50: WBC 14.5 H, RBC 3.67 L, Hgb 10.2 L, Hct 30.9 L, MCV 84.2, MCH 27.8, MCHC 33.0, RDW Std Deviation 42.5, RDW Coeff of Delaney 13.7, Plt Count 271, MPV 10.0, Immature Gran % (Auto) 0.400, Neut % (Auto) 86.5 H, Lymph % (Auto) 5.6 L, [place] % (Auto) 7.4, Eos % (Auto) 0.0, Baso % (Auto) 0.1, Absolute Neuts (auto) 12.6 H, Absolute Lymphs (auto) 0.81 L, Nucleated RBC % 0, Sodium 136, Potassium 3.4, Chloride 102, Carbon Dioxide 21.9, Anion Gap 12, BUN 4, Creatinine 0.58 L, Estim Creat Clear Calc 164.80, Est GFR (MDRD) Non-Af 124, BUN/Creatinine Ratio 7.2 L, Glucose 127 H, Calcium 8.4, Total Bilirubin 0.86, AST 44 H, ALT 120 H, Alkaline Phosphatase 81, Total Protein 6.0, Albumin 3.2 L, Globulin 2.8, Albumin/Globulin Ratio 1.1 Rhythm Strip Rhythm Strip: Sinus Rhythm Cardiology Labs/Tests 07/21/25 04:50: WBC 14.5 H, RBC 3.67 L, Hgb 10.2 L, Hct 30.9 L, MCV 84.2, MCH 27.8, MCHC 33.0, Plt Count 271, MPV 10.0, Immature Gran % (Auto) 0.400, Neut % (Auto) 86.5 H, Lymph % (Auto) 5.6 L, [place] % (Auto) 7.4, Eos % (Auto) 0.0, Baso % (Auto) 0.1, Absolute Neuts (auto) 12.6 H, Nucleated RBC % 0, Sodium 136, Potassium 3.4, Chloride 102, Carbon Dioxide 21.9, Anion Gap 12, BUN 4, C reatinine 0.58 L, Est GFR (MDRD) Non-Af 124, BUN/Creatinine Ratio 7.2 L, Glucose 127 H, Calcium 8.4, Total Bilirubin 0.86 Rhythm: EKG: ECHO: Stress Test: Cardiac Cath: PCI: CT Surgery: Holter monitor: EPS: PPM: CXR: Chest CT Scan: Radiography Diagnostic Testing: Radiology Impression Echocardiogram 07/20/25 08:28 Interpretation Summary The left ventricular ejection fraction is 60 %. Ordering Physician: Darshan Bell Performed By: Hamlet Arroyo RCS Physical Exam Narrative Comfortable. No distress. Sitting up in chair. Heart sounds 1 and 2 normal. Chest clear to auscultation bilaterally. Alert oriented x 3. Assessment & Plan Assessment/Plan (1) Abnormal EKG: PLAN: ECG done yesterday showed T wave inversions in anterior and inferior leads. Normal echocardiogram. Likely secondary to hyperadrenergic state with acute cholecystitis and abdominal pain. Changes largely resolved this morning. Now only with nonspecific T wave changes. Recommend follow-up ECG with primary care physician as outpatient. (2) Cholecystitis, acute with cholelithiasis: PLAN: Status post laparoscopic cholecystectomy. On IV antibiotics. (3) Abdominal pain: PLAN: Secondary to #2 above. Resolved. PLAN: Plan Will sign off. Please call if needed. Recommend follow-up ECG as outpatient.
--- NOTE | 2025-07-21 10:54 | PCM.PN.BLA ---
Progress Note Patient is doing well this morning. She tolerated a regular breakfast with no nausea or vomiting. Her abdominal pain is well-controlled on p.o. pain meds. Her drain is serosanguineous. Plan to discharge home with a drain and placed on oral antibiotics later today.
--- NOTE | 2025-07-21 10:55 | PCM.DC.SUM ---
Providers Date of Admission: 07/19/25 Primary Care Physician: JORDY Chang Consultations 07/20/25 08:08 Consult: Cardiology Routine Consulting Provider: Darshan Bell Reason for Consult: Abnormal pre-op EKG; new T-wave inversion EMERGENT Consult: No MD Notified: Yes Date Notified: 07/20/25 Time Notified: 08:09 Method of Notification: Verbal Method of Consult:: In-Person Comments:: Spoke with Dr. Bell Reason For Visit: ACUTE CHOLECYSTITIS Diagnosis Discharge Diagnosis (1) Abnormal EKG: Status: Acute Code(s): R94.31 - Abnormal electrocardiogram [ECG] [EKG] (2) Cholecystitis, acute with cholelithiasis: Status: Acute Code(s): K80.00 - Calculus of gallbladder with acute cholecystitis without obstruction (3) Abdominal pain: Status: Acute Code(s): R10.9 - Unspecified abdominal pain Medications at Discharge Home Medications amoxicillin 500 mg-potassium clavulanate 125 mg tablet (Augmentin) 1 tab PO BID #10 tabs 07/21/25 oxycodone 5 mg tablet 5 mg PO Q4H PRN PRN Pain Score 4-10 5 days #20 tabs 07/21/25 Hospital Course Operations cholecystecomy Procedures None Summary of Care Provided Hospital Course: The patient was admitted with acute cholecystitis. She was taken for laparoscopic cholecystectomy and found to have a gangrenous gallbladder. A drain was left in place. She was admitted overnight. She will be discharged home with a drain and placed on oral antibiotics and follow-up early next week for drain removal with Dr. Zaman. Weight / BMI Weight Weight: 220 lb 14.451 oz Body Mass Index (BMI) 36.8 ABG / Lab / Microbiology Data 07/21/25 04:50 07/21/25 04:50 Laboratory: Laboratory Results - last 24 hr 07/20/25 11:00: Troponin T Hi Sens 2 Hr < 6 07/20/25 16:15: Troponin T Hi Sens 4Hr < 6 07/21/25 04:50: WBC 14.5 H, RBC 3.67 L, Hgb 10.2 L, Hct 30.9 L, MCV 84.2, MCH 27.8, MCHC 33.0, RDW Std Deviation 42.5, RDW Coeff of Delaney 13.7, Plt Count 271, MPV 10.0, Immature Gran % (Auto) 0.400, Neut % (Auto) 86.5 H, Lymph % (Auto) 5.6 L, [place] % (Auto) 7.4, Eos % (Auto) 0.0, Baso % (Auto) 0.1, Absolute Neuts (auto) 12.6 H, Absolute Lymphs (auto) 0.81 L, Nucleated RBC % 0, Sodium 136, Potassium 3.4, Chloride 102, Carbon Dioxide 21.9, Anion Gap 12, BUN 4, Creatinine 0.58 L, Estim Creat Clear Calc 164.80, Est GFR (MDRD) Non-Af 124, BUN/Creatinine Ratio 7.2 L, Glucose 127 H, Calcium 8.4, Total Bilirubin 0.86, AST 44 H, ALT 120 H, Alkaline Phosphatase 81, Total Protein 6.0, Albumin 3.2 L, Globulin 2.8, Albumin/Globulin Ratio 1.1 D/C Instructions Discharge Activity: May Not Drive (for 2-3 days or while taking narcotic pain medications.) and - (Do not drive, work heavy equipment or sign legal documents for 24 hours.) May shower in (days): 1 Lifting Restrictions: 20 lbs for 2 weeks Additional Activity Instructions: Pain medication may cause nausea. You should typically eat light foods as you take your pain medications. Pain medication may also cause constipation. If this is a problem for you, please discuss with your doctor. Alternate ibuprofen and Tylenol for pain control, oxycodone for breakthrough pain. Call your doctor if your incision/area has: Continuous Slow Oozing, Sudden Increased Bleeding, Increased Pain/ Swelling, Increased Redness and Foul Smelling Discharge Call your doctor if you observe: Fever of 101 or Higher Suture Line Care: Avoid Pulling/Pushing and Avoid Pinching/Bending Remove Dressing in: 2 days Additional Dressing/Incision Instructions: Leave operative bandaids on for 2 days. When you remove dressing, leave Steri-Strips on until your follow-up appointment, or until the Steri-Strips fall off on their own. DC O2, CPAP, BIPAP Needs Home O2 Discharge instructions: No Please Follow Up With: Farshad Zaman MD When: Please call to schedule follow up appointment. [phone] Meaningful Use Info Meaningful Use Meaningful Use Diagnoses (Choose all that apply): None applicable Discharge Plan Admission Admit Date/Time: 07/19/25 15:41 Attending Provider: Farshad Zaman Primary Care Provider: Chuckie Ochoa Consulting Providers: Darshan Bell Discharge Orders/Prescriptions Prescriptions: New oxycodone 5 mg Tablet 5 mg PO Q4H PRN PRN (Reason: Pain Score 4-10) 5 Days Qty: 20 0RF amoxicillin-pot clavulanate [Augmentin] 500-125 mg tablet 1 tab PO BID Qty: 10 0RF Referrals / Follow Up: Care Physician,No Primary [Non-Staff] - Chuckie Ochoa PA [Primary Care Provider] - Disposition Disposition (needs filled in before D/C Order can be placed): Home, Self Care
--- NOTE | 2025-07-21 11:35 | PHA.DC.COU.R ---
Pharmacy [facility] has performed discharge medication counseling for this patient. The patient was counseled on the following discharge medications and changes in medications for homegoing review. - Oxycodone 5 mg tablet, Augmentin 500/125 mg tablet. The Reason for Use, instructions for use, and potential side effects were reviewed for all new medications. The patient's questions regarding all of their medications were answered. The patient was able to verbally demonstrate an understanding of their discharge medications. Medications at Discharge Home Medications amoxicillin 500 mg-potassium clavulanate 125 mg tablet (Augmentin) 1 tab PO BID #10 tabs 07/21/25 oxycodone 5 mg tablet 5 mg PO Q4H PRN PRN Pain Score 4-10 5 days #20 tabs 07/21/25
== END 2025-07-21 11:53 | disposition home or self-care (01) ==
LOC: ED 15:14 → MS3 15:47
PROVIDERS: Physician Assistant; Admitting Provider Surgery; Emergency Provider Emergency Medicine; PCP Physician Assistant; Visit Provider Surgery
PROC: 0FT44ZZ Resection of Gallbladder, Percutaneous Endoscopic Approach (ICD-10-PCS; CPT 47562; principal; 2025-07-20 11:10)
DX: K80.12 Calculus of gallbladder with acute and chronic cholecystitis without obstruction (principal); Z87.891 Personal history of nicotine dependence; K82.A1 Gangrene of gallbladder in cholecystitis; R94.31 Abnormal electrocardiogram [ECG] [EKG]
CPT/HCPCS: 47562; S2900; 00790; 36415; 76705; 80053; 81025; 83690; 84484; 85025; 88304; 93005; 93306; 96361; 96365; 96366; 96367; 96375; 96376; 97802; 99221; 99285; A4216; G0378; J2405

== ENCOUNTER → 2025-07-25 | Outpatient (CLI) | payer BC, SELFPAY ==
--- NOTE | 2025-07-25 09:59 | NM_ITS ---
PROCEDURE: HEPATOBILLIARY IMAGING 07/25/2025 REASON FOR EXAM: BILE LEAK TECHNIQUE: Procedure Code: NMHIDA Modality: NM Procedure: HEPATOBILLIARY IMAGING Intravenous Choletec with planar imaging of the abdomen. RADIOPHARMACEUTICAL: 5.3 mCi mebrofenin IV COMPARISON: None FINDINGS: The gallbladder is absent. There is rapid progression of radiotracer activity into the proximal small bowel. There is abnormal progression of radiotracer activity along the liver margin and into the right peritoneum, versus a drain in this region if present. NM/Hepatobilliary Imaging IMPRESSION: There is abnormal progression of radiotracer activity along the liver margin an d into the right peritoneum, versus a drain in this region if present. Clinical correlation is recommended. Reading Location: [facility]
== END | disposition home or self-care (01) ==
LOC: NM 09:58
PROVIDERS: PCP Physician Assistant; Referring Provider Surgery; Visit Provider Surgery
DX: Z90.49 Acquired absence of other specified parts of digestive tract (principal)
CPT/HCPCS: 78226; A9537

== ENCOUNTER 2025-08-07 11:18 | Day surgery (SDC) | payer BC, SELFPAY ==
--- OUTSIDE RECORDS SUMMARY | 2025-07-18 00:38 | XMS RPT_ITS ---
Author Name Auto Generated Organization OHIP Care Team Providers Care Health Program Manager Name Role Phone ANALI ESPINAL Attending Unavailable DERRICK ZAMUDIO Primary Care Unavailable PLOTTS, LEANNA Referring Unavailable RICO, CAROLINA Attending Unavailable ROSIO DAVIES Attending Unavail able RICO, CAROLINA Referring Unavailable PLOTTS, LEANNA Attending Unavailable RICO, CAROLINA Referring Unavailable PLOTTS, LEANNA Referring Unavailable PLOTTS, LEANNA Referring Unavailable PLOTTS, LEANNA Attending Unavailable RICO, CAROLINA Referring Unavailable PLOTTS, LEANNA Referring Unavailable PLOTTS, LEANNA Referring Unavailable PLOTTS, LEANNA Referring Unavailable MILTON ANTHONY Attending Unavailable PLOTTS, LEANNA Referring Unavailable PLOTTS, LEANNA Referring Unavailable PLOTTS, LEANNA Referring Unavailable PROBLEMS DATE TYPE CONDITION / CODE ATTENDING STATUS [facility] 07/18/2025 Admitting Diagnosis Epigastric pain / R10.13(ICD-10) ANALI ESPINAL Active [facility] 07/18/2025 Admitting Diagnosis Hypokalemia / E87.6(ICD-10) ANALI ESPINAL Active [facility] 03/02/2025 Active Other intra-abdominal and pelvic swelling, mass and lump / R19.09(ICD-10) NA Active [facility] 02/03/2025 Active Threatened (HCC) / O20.0(ICD-10) NA Active [facility] 02/03/2025 Active Vaginal bleeding affecting early (HCC) / O20.9(ICD-10) NA Active [facility] 02/03/2025 Active Missed ab (HCC) / O02.1(ICD-10) NA Active [facility] 01/20/2025 Active Threatened / O20.0(ICD-10) NA Active [facility] 01/20/2025 Active Vaginal bleeding affecting early / O20.9(ICD-10) NA Active [facility] 01/20/2025 Active 5 weeks gestatio n of / Z3A.01(ICD-10) NA Active [facility] 01/06/2025 Active with uncertain dates, antepartum / Z34.90(ICD-10) RICO, CAROLINA Active [facility] PROCEDURES No Procedure Records Found RESULTS COMPLETE BLOOD COUNT W AUTO DIFFERENTIAL PANEL Collected: 07/18/2025 1:16 AM Status: F Source: [facility] TYPE CODE TESTS RESULT OUT OF RANGE REFERENCE UNITS LAB 6690-2(LOINC) Leukocytes 7.9 4.4-11.3 x10*3/ uL LAB 19738-1(LOINC ) Erythrocytes.nu cleated/Leukocy vamshi 0.0 0.0-0.0 /100 WBCs LAB 789-8(LOINC) Erythrocytes 4.42 4.00-5.20 x10* 6/uL LAB 718-7(LOINC) Hemoglobin 12.1 12.0-16.0 g/dL LAB 4544-3(LOINC) Erythrocyte/Blo od 37.4 36.0-46.0 % LAB 787-2(LOINC) Observation 85 80-100 fL LAB 785-6(LOINC) Hemoglobin 27.4 26.0-34.0 pg LAB 786-4(LOINC) Hemoglobin 32.4 32.0-36.0 g/dL LAB 788-0(LOINC) Observation 13.4 11.5-14.5 % LAB 777-3(LOINC) Platelets 345 150-450 x10*3/uL LAB 770-8(LOINC) Neutrophils/Luis kocytes 62.4 40.0-80.0 % LAB 42171-7(LOINC ) Granulocytes.im mature/Leukocyt es 0.3 0.0-0.9 % Result Comment: Immature Gra nulocyte Count (IG) includes promyelocytes, myelocytes and metamyelocytes but does not include bands. Percent differential counts (%) should be interpreted in the context of the absolute cell counts (cells/UL). LAB 736-9(LOINC) Lymphocytes/Luis kocytes 27.6 13.0-44.0 % LAB 5905-5(LOINC) Monocytes/Leuko cytes 8.4 2.0-10.0 % LAB 713-8(LOINC) Eosinophils/Luis kocytes 0.8 0.0-6.0 % LAB 706-2(LOINC) Basophils/Leuko cytes 0.5 0.0-2.0 % LAB 751-8(LOINC) Neutrophils 4.94 1.20-7.70 x10*3 /uL Result Comment: Percent diff erential counts (%) should be interpreted in the context of the absolute cell counts (cells/uL). LAB 94932-7(LOINC ) Granulocytes.im mature 0.02 0.00-0.70 x10*3/uL LAB 731-0(LOINC) Lymphocytes 2.18 1.20-4.80 x10*3 /uL LAB 742-7(LOINC) Monocytes 0.66 0.10-1.00 x10*3/u L LAB 711-2(LOINC) Eosinophils 0.06 0.00-0.70 x10*3 /uL LAB 704-7(LOINC) Basophils 0.04 0.00-0.10 x10*3/u L Performed By: #### 92959-2 # ### LASSITER MERLY ([id number]) [facility] ([facility]) [address] [place] [address] COMPREHENSIVE METABOLIC 2000 PANEL Collected: 07/18/2025 1:16 AM Status: F Source: [facility] TYPE CODE TESTS RESULT OUT OF RANGE REFERENCE UNITS LAB 2345-7(LOINC) Glucose 97 74-99 mg/dL LAB 2951-2(LOINC) Sodium 139 136-145 mmol/L LAB 2823-3(LOINC) Potassium 3.2 Low 3.5-5.3 mmol/L LAB 2075-0(LOINC) Chloride 104 98-107 mmol/L LAB 8-9(LOINC) Carbon dioxide 24 21-32 mmo l/L LAB 21958-8(LOINC ) Anion gap 14 10-20 mmol/L LAB 3094-0(LOINC) Urea nitrogen 9 6-23 mg/d L LAB 2160-0(LOINC) Creatinine 0.59 0.50-1.05 mg/dL LAB 51302-6(LOINC ) Glomerular filtration rate >90 >60 mL/min/ 1.73m*2 Result Comment: Calculations of estimated GFR are performed using the 2020 CKD- EPI Study Refit equation without the race variable for the IDMS-Traceable creatinine methods. https://jasn.asnjournals.org/content/early//ASN.6017138504 LAB 62706-3(LOINC ) Calcium 9.5 8.6-10.3 mg/dL LAB 90559-7(LOINC ) Albumin 4.4 3.4-5.0 g/dL LAB 6768-6(LOINC) Alkaline phosphatase 51 33-110 U/L LAB 2885-2(LOINC) Protein 6.7 6.4-8.2 g/dL LAB 03141-1(LOINC ) Aspartate aminotransferase 23 9-39 U/L LAB 1975-2(LOINC) Bilirubin 0.3 0.0-1.2 mg/dL LAB 1743-4(LOINC) Alanine aminotransferase 39 7-45 U/L Result Comment: Patients radha ated with Sulfasalazine may generate falsely decreased results for ALT. Performed By: #### 79377-8 # ### MAIKOL MORELAND ([id number]) [facility] ([facility]) [address] [place] [address] TRIACYLGLYCEROL LIPASE Collected: 07/18/2025 1:16 AM Status: F Source: [facility] Order Comment: Venipuncture immediately after or during the administration of Metamizole may lead to falsely low results. Testing should be performed immediately prior to Metamizole dosing. TYPE CODE TESTS RESULT OUT OF RANGE REFERENCE UNITS LAB 3040-3(LOINC) Triacylglycerol lipase 17 9-82 U/L Performed By: #### 3040-3 ## ## MAIKOL MORELAND ([id number]) [facility] ([facility]) [address] [place] [address] TROPONIN I.CARDIAC PANEL Collected: 07/2025 1:16 AM Status: F Source: [facility] Order Comment: Less than 99t h percentile of normal range cutoff- Female and children under 18 years old <14 ng/L; Male <21 ng/L: Negative Repeat testing should be performed if clinically indicated. Female and children under 18 years old 14-50 ng/L; Male 21-50 ng/L: Consistent with possible cardiac damage and possible increased clinical risk. Serial measurements may help to assess extent of myocardial damage. >50 ng/L: Consistent with cardiac damage, increased clinical risk and myocardial infarction. Serial measurements may help assess extent of myocardial damage. NOTE: Children less than 1 year old may have higher baseline troponin levels and results should be interpreted in conjunction with the overall clinical context. NOTE: Troponin I testing is performed using a different testing methodology at [facility] than at other [facility]. Direct result comparisons should only be made within the same method. TYPE CODE TESTS RESULT OUT OF RANGE REFERENCE UNITS LAB 29445-7(LOINC) Troponin I.cardiac panel <3 0-13 ng/L Performed By: #### 91882-4 # ### LASSITER MERLY ([id number]) [facility] ([facility]) [address] [place] [address] URINALYSIS COMPLETE W REFLEX CULTURE PANEL Collected: 07/18/2025 1:13 AM Status: F Source: [facility] TYPE CODE TESTS RESULT OUT OF RANGE REFERENCE UNITS LAB 5778-6(LOINC) Observation Light-Yellow L ight-Yellow , Yellow, Dark-Yellow LAB 5767-9(LOINC) Observation Clear Clear LAB 22604-0(LOINC) Observation 1.024 1.005-1.035 LAB 40232-5(LOINC) pH 5.5 5.0, 5.5, 6.0, 6.5, 7.0, 7.5, 8.0 LAB 89722-9(LOINC) Protein NEGATIVE NEGAT NATALIYA, 10 (TRACE), 20 (TRACE) mg/dL LAB 44952-6(LOINC) Glucose Normal Normal mg/dL LAB 14993-4(LOINC) Erythrocytes NEGATIVE NEGATIVE mg /dL LAB 99678-5(LOINC) Ketones TRACE Abnormal NEGATIVE mg/dL LAB 05234-4(LOINC) Bilirubin NEGATIVE NEGATIVE mg/dL LAB 63749-5(LOINC) Urobilinogen Normal Normal mg/d L LAB 57910-0(LOINC) Nitrite NEGATIVE NEGATIVE LAB 14570-7(LOINC) Leukocyte esterase NEGATIVE NEGATIVE Performed By: #### 87309-2 # ### MAIKOL MORELAND ([id number]) [facility] ([facility]) [facility] [place] [address] CHORIOGONADOTROPIN Collected: 07/18/2025 1:13 AM Sta tus: F Source: [facility] TYPE CODE TESTS RESULT OUT OF RANGE REFERENCE UNITS LAB 95284-1(LOIN C) Choriogonadotropin NEGATIVE NEGATIVE Performed By: #### 75582-1 # ### MAIKOL MORELAND ([id number]) [facility] ([facility]) [address] [place] [address] CT ABDOMEN PELVIS W IV CONTRAST Observed: 07/18/2025 1:03 AM Status: F Source: [facility] Interpreted By: Tammy Montesinos, STUDY: CT ABDOMEN PELVIS W IV CONTRAST; 07/18/2025 2:43 am INDICATION: Signs/Symptoms:Epigastric pain into the back.. COMPARISON: None. ACCESSION NUMBER(S): [id number] ORDERING CLINICIAN: ANALI ESPINAL TECHNIQUE: Contiguous axial images of the abdomen and pelvis were obtained after the intravenous administration of iodinated contrast. Coronal and sagittal reformatted images were reconstructed from the axial data. FINDINGS: Liver, gallbladder, adrenals, pancreas and spleen are unremarkable. Kidneys intact without hydronephrosis or hydroureter. No bowel obstruction. No appendicitis or colitis. Potential right ovarian or paraovarian cyst measuring 2.4 cm noted. Probable pedunculated fibroid seen projecting off the uterine fundus. Bladder is collapsed. Aorta is normal in caliber. Osseous structures are intact. IMPRESSION: Potential right ovarian and/or paraovarian cyst. No other acute process identified abdomen or pelvis. MACRO: None. Signed by: Filiberto Montesinos 07/18/2025 3:19 AM Dictation workstation: [id number] MRI FEMALE PELVIS WO/W IVCON Observed: 0 03/02/2025 12:20 PM Status: F Source: [facility] * * *Final Report* * * DATE OF EXAM: Mar 02 2025 12:20PM LUDWIG 0713 - MRI FEMALE PELVIS WO/W IVCON / PROCEDURE REASON: Other intra-abdominal and pelvic swelling, mass and lump * * * * Physician Interpretation * * * * MRI OF THE FEMALE PELVIS WITHOUT AND WITH CONTRAST CLINICAL HISTORY: Adnexal lesion TECHNIQUE: Magnet: 1.5T scanner. Coil: Torso phased array Sequences / planes: Multisequence, multiplanar MR imaging of the pelvis was performed with and without intravenous contrast. Contrast: IV administration of 10 ml of Elucirem administration of ml of COMPARISON: US 02/03/2025, RESULT: Uterus: Size: 9 cm in sagittal dimension Orientation: Anteverted Configuration: conventional Endometrium: Maximum width measures 8 mm. No endometrial lesion. Junctional zone: Maximum thickness: 5 mm. Homogeneous T2 hypointense signal. Cervix: Normal Leiomyomas: Single leiomyoma as follows Leiomyoma 1 Size: 2 cm (3:28) Location within the uterus: Fundus Type: Subserosal and less than 50% intramural (FIGO 6) Enhancement: Complete / near complete post contrast enhancement Imaging features: Typical imaging features Differential: n/a Adenomyomas: None Ovaries: - Right ovary: Measures 3.6 x 2.5 cm with normal follicular pattern. Paraovarian cyst in the right adnexa measuring 2.7 cm (4:32). No definite solid component. It has a smooth enhancing wall. It is compatible with a O-RADS 2. - Left ovary: Measures 2.4 x 2 cm with normal follicular pattern. Endometriosis: None Bladder: Normal. Peritoneum: No free fluid. Lymph nodes: No lymph nodes enlarged by size criteria Gastrointestinal: Normal. Vessels: Normal. Bones: No suspicious lesions. IMPRESSION: 1. Right paraovarian cyst, without suspicious features. O-RADS 2. 2. Small subserosal uterine fibroid. Monomer Recovery Supervisor: PSCJoseph Transcribe Date/Time: Mar 09 2025 11:35A Dictated by : WILY DIAZ MD This examination was interpreted and the report reviewed and electronically signed by: WILY DIAZ MD on Mar 09 2025 11:45AM EST [id number] PROGRESS Observed: 03/02/2025 11:30 AM Status: COMPLETED Source: [facility] HNO ID: [id number] Author: BILLY HAUSER RT(R) Service: ? Author Type: Technologist Type: Progress Notes Filed: 03/02/2025 11:41 Note Text: Radiology Service Progress Note DATE OF SERVICE: March 02, 2025 TIME: 11:41 AM PATIENT IDENTITY VERIFICATION COMPLETED USING TWO (2) STANDARD IDENTIFIERS: Name and Date of confirmed by patient verbally. FALL SCREENING: Has the patient had 2 falls in the last year or 1 fall with injury or currently using an Ambulatory Assistive Device (Walker, Cane, Wheelchair, Crutches, etc.)? No PATIENT GENDER DATA: Assigned female at . status: : No status: NO. PATIENT RELEVANT IMPLANT DATA REVIEWED: Yes PATIENT PRESENTS WITH AN IMPLANTABLE OR ATTACHED PATTERN FILER: No ALLERGIES: Reviewed and unchanged CONTRAST ALLERGY: NO. EXAM: MRI - CONTRAST TYPE: GROUP II PERIPHERAL IV DATA: Ambulatory: A peripheral IV was started in the Left forearm with a Angio cath: 22 gauge. RADIOLOGY DEPARTMENT: MR; Exam(s) Completed: Body: Female Pelvis SIGNATURE: RT Cheikh(R) PATIENT NAME: Con Matthews DATE: March 02, 2025 TIME: 11:41 AM B-HCG SERPL-ACNC Collected: 1:19 PM Status: F Source: [facility] Order Comment: Specimen Type : BLOOD SPECIMEN Ordering Facility: [facility] Address: [address] [place] [address] TYPE CODE TESTS RESULT OUT OF RANGE REFERENCE UNITS LAB 70061-7([facility]) B-HCG SerPl-aCnc 5.0 High <5.0 mIU/mL Result Comment: HCG values 5 to 16 mU/mL may represent benign, pituitary derived HCG in non- women over 40 years of age. QUANTITATIVE HCG NORMAL RANGES Weeks of Gestation (Weeks Since LMP) 3 Weeks (5.8-71.2 mIU/mL) 4 Weeks (9.5-750 mIU/mL) 5 Weeks (217-7138 mIU/mL) 6 Weeks (158-14296 mIU/mL) 7 Weeks (3697-616530 mIU/mL) 8 Weeks (26195-381482 mIU/mL) 9 Weeks (63343-352883 mIU/mL) 10 Weeks (00805-321328 mIU/mL) 12 Weeks (46570-390044 mIU/mL) Referenced to 4th IS of [facility] Performed By: #### 26789-9 # ### [facility] CLIA [id number] [address] [place] [address] [place] PROGRESS Observed: 02/10/2025 10:08 PM Status: COMPLETED Source: [facility] HNO ID: [id number] Author: ROBERTO CARLOS BAIRES MD Service: ? Author Type: Physician Type: Progress Notes Filed: 02/10/2025 22:09 Note Text: The patient presents for requested ultrasound. Full report available in the Imaging tab in Epic. Roberto Carlos Baires MD B-HCG SERPL-ACNC Collected: 9:57 AM Status: F Source: [facility] Order Comment: Specimen Type : BLOOD SPECIMEN Ordering Facility: [facility] Address: [address] [place] [address] TYPE CODE TESTS RESULT OUT OF RANGE REFERENCE UNITS LAB 70575-8(LOINC) B-HCG SerPl-aCnc 245.7 High <5.0 mIU/mL Result Comment: QUANTITATIVE HCG NORMAL RANGES Weeks of Gestation (Weeks Since LMP) 3 Weeks (5.8-71.2 mIU/mL) 4 Weeks (9.5-750 mIU/mL) 5 Weeks (217-7138 mIU/mL) 6 Weeks (158-20067 mIU/mL) 7 Weeks (3697-792350 mIU/mL) 8 Weeks (57267-575079 mIU/mL) 9 Weeks (57861-099421 mIU/mL) 10 Weeks (89784-521118 mIU/mL) 12 Weeks (53077-376534 mIU/mL) Referenced to 4th IS of [facility] Performed By: #### 98443-0 # ### [facility] CLIA [id number] [address] [place] [address] [place] Observed: 02/03/2025 9:40 AM Status: COMPLETED Source: [facility] Office Visit (OBGYWM) CON MATTHEWS ([id number]) 1995 F Date Time Provider Department 02/03/25 9:40 AM MILTON ANTHONY OBGYWM During your visit today, we recorded the following information about you: Blood pressure Weight 122/78 101.2 kg Milton Anthony MD 02/03/2025 9:51 AM Signed Con Matthews is a 29 year old female who presents for problem visit to follow up on ultrasound scheduled on 02/03/2025 for miscarriage, LMP 10/28/2024. HPI: Patient presents after US for missed . OB History Gravida1 Para0 Term0 Preterm0 AB0 Living0 SAB0 IAB0 Ectopic0 Multiple0 Live Births0 Tool Lapper Hand History LMP: 10/28/2024, Age at Menarche: 13 Age at First : 29 Age at Menopause: Tool Lapper Hand History Comments: Sexual Activity: Yes; Male Contraception: Condom PAST MEDICAL HISTORY Diagnosis Date Acne PMH - PAST MEDICAL HISTORY OF Color Vision - Normal PAST SURGICAL HISTORY Procedure Laterality Date NONE FAMILY HISTORY Problem Relation Age of Onset Allergies Father Cancer Maternal Grandfather 60 Colon Asthma Father Social History Tobacco Use Smoking status: Never Passive exposure: Yes Smokeless tobacco: Never Substance Use Topics Alcohol use: No Drug use: No Current Outpatient Medications Medication Sig miSOPROStol (CYTOTEC) 200 mcg tablet Please insert 4 tablets into vagina x1, if not effective after 24-48 hours repeat dose No current facility-administered medications for this visit. Allergies As of Date: 02/03/2025 Allergen Noted Reaction POISON AVIVA [VIT E-NONOXYNOL 9-MARIO*02/13/2010 Swelling Fully Assessed 01/25/2025 Allergies and current medication updated:Yes SENSITIVE EXAM: Sensitive exam not performed. EXAM: LMP 10/28/2024 GENERAL: pleasant, female in no apparent distress ASSESSMENT AND PLAN: Assessment AND Plan Complete (HCC) Prelim US read shows complete . Proceed with hcg level today. Discussed when OK to attempt and to continue PNV. All questions answered. Medical Decision Making: Problems: Low: Acute, uncomplicated illness or injury Data: Unique test result(s) reviewed: 3+ Risk: Low: Low risk from testing/treatment Medical Decision Making Level: 3 - Low Milton Anthony MD Referring Provider: LEANNA HOU [[id number]] Allergies As of Date: 02/03/2025 Noted Allergy Reaction POISON AVIVA (VIT E-NONOXYNOL 9-MARIO*02/13/2010 7 - Swelling Date Reviewed: 02/03/2025 Reviewed by: Milton Anthony MD - Fully Assessed Reason for Visit: Follow Up [171] Primary Visit Diagnosis:Complete [O03.9] Order(s): Enchnpxo-Dz-Fvv-Fe-FA tabTake 1 tablet by mouth once daily.Disp: Rfl: Prescriptions as of 02/03/2025 - Igkorukm-Qu-Kio-Fe-FA tab Take 1 tablet by mouth once daily. - miSOPROStol (CYTOTEC) 200 mcg tablet Please insert 4 tablets into vagina x1, if not effective after 24-48 hours repeat dose Problem List As Of Date 02/03/2025 Noted Resolved BMI 36.0-36.9,adult [Z68.36] 01/06/2025 Encounter for supervision of normal first pregn*01/06/2025 Prescriptions ordered this encounter Disp Refills Start End VITAMIN,CALCIUM,MINERALS-IR* 02/03/2025 Class: Med Update Route: ORAL Sig: Take 1 tablet by mouth once daily. Encounter Status:Closed by MILTON ANTHONY on 02/03/25 PROGRESS Observed: 02/03/2025 8:51 AM Status: COMPLETED Source: [facility] ID: [id number] Author: MILTON ANTHONY MD Service: ? Author Type: Physician Type: Progress Notes Filed: 02/03/2025 09:51 Note Text: Con Matthews is a 29 year old female who presents for problem visit to follow up on ultrasound scheduled on 02/03/2025 for miscarriage, LMP 10/28/2024. HPI: Patient presents after US for missed . OB History Gravida1 Para0 Term0 Preterm0 AB0 Living0 SAB0 IAB0 Ectopic0 Multiple0 Live Births0 Tool Lapper Hand History LMP: 10/28/2024, Age at Menarche: 13 Age at First : 29 Age at Menopause: Tool Lapper Hand History Comments: Sexual Activity: Yes; Male Contraception: Condom PAST MEDICAL HISTORY Diagnosis Date Acne PMH - PAST MEDICAL HISTORY OF Color Vision - Normal PAST SURGICAL HISTORY Procedure Laterality Date NONE FAMILY HISTORY Problem Relation Age of Onset Allergies Father Cancer Maternal Grandfather 60 Colon Asthma Father Social History Tobacco Use Smoking status: Never Passive exposure: Yes Smokeless tobacco: Never Substance Use Topics Alcohol use: No Drug use: No Current Outpatient Medications Medication Sig miSOPROStol (CYTOTEC) 200 mcg tablet Please insert 4 tablets into vagina x1, if not effective after 24-48 hours repeat dose No current facility-administered medications for this visit. Allergies As of Date: 02/03/2025 Allergen Noted Reaction POISON AVIVA [VIT E-NONOXYNOL 9-MARIO*02/13/2010 Swelling Fully Assessed 01/25/2025 Allergies and current medication updated:Yes SENSITIVE EXAM: Sensitive exam not performed. EXAM: LMP 10/28/2024 GENERAL: pleasant, female in no apparent distress ASSESSMENT AND PLAN: Assessment AND Plan Complete (HCC) Prelim US read shows complete . Proceed with hcg level today. Discussed when OK to attempt and to continue PNV. All questions answered. Medical Decision Making: Problems: Low: Acute, uncomplicated illness or injury Data: Unique test result(s) reviewed: 3+ Risk: Low: Low risk from testing/treatment Medical Decision Making Level: 3 - Low Milton Anthony MD B-HCG SERPL-ACNC Collected: 5 1:11 PM Status: F Source: [facility] Order Comment: Specimen Type : BLOOD SPECIMEN Ordering Facility: [facility] Address: [address] [place] [address] TYPE CODE TESTS RESULT OUT OF RANGE REFERENCE UNITS LAB 95106-7(LOINC) B-HCG SerPl-aCnc 858.5 High <5.0 mIU/mL Result Comment: QUANTITATIVE HCG NORMAL RANGES Weeks of Gestation (Weeks Since LMP) 3 Weeks (5.8-71.2 mIU/mL) 4 Weeks (9.5-750 mIU/mL) 5 Weeks (217-7138 mIU/mL) 6 Weeks (158-03490 mIU/mL) 7 Weeks (3697-611039 mIU/mL) 8 Weeks (58226-494609 mIU/mL) 9 Weeks (68690-339332 mIU/mL) 10 Weeks (86587-818574 mIU/mL) 12 Weeks (16806-184703 mIU/mL) Referenced to 4th [facility] Performed By: #### 78246-5 # ### [facility] CLIA [id number] [address] [place] [address] CNPN Observed: 01/27/2025 12:00 AM Status: COMPLETED Source: [facility] Telephone (OBGYWM) CON MATTHEWS ([id number]) 1995 F Date Time Provider Department 01/27/25 REG ZAZEUTA During your visit today, we recorded the following information about you: Silvia Roblero RN 01/27/2025 4:53 PM Signed Left message for patient to call office. Patient was incorrectly scheduled with LM for her f/u missed AB US. Needs to be with TF. Next opening is . Cancelled Thursday's US. Patient has an office visit that will need rescheduled too. ORVILLE Pacheco Lindsey, RN 01/30/2025 8:49 AM Signed Patient rescheduled. Lawanda Jain RN Allergies As of Date: 01/27/2025 Noted Allergy Reaction POISON AVIVA (VIT E-NONOXYNOL 9-MARIO*02/13/2010 7 - Swelling Date Reviewed: 01/25/2025 Reviewed by: Leanna Hou APRN.CNM - Fully Assessed Reason for Visit: Future Appointment [256] Prescriptions as of 01/30/2025 - miSOPROStol (CYTOTEC) 200 mcg tablet Please insert 4 tablets into vagina x1, if not effective after 24-48 hours repeat dose Problem List As Of Date 01/27/2025 Noted Resolved BMI 36.0-36.9,adult [Z68.36] 01/06/2025 Encounter for supervision of normal first pregn*01/06/2025 Encounter Status:Closed by LAWANDA JAIN on 01/30/25 B-HCG SERPL-ACNC Collected: 5 8:23 AM Status: F Source: [facility] Order Comment: Specimen Type : BLOOD SPECIMEN Ordering Facility: [facility] Address: [address] [place] [address] TYPE CODE TESTS RESULT OUT OF RANGE REFERENCE UNITS LAB 00769-1(LOINC) B-HCG SerPl-aCnc 8026.0 High <5.0 mIU/mL Result Comment: QUANTITATIVE HCG NORMAL RANGES Weeks of Gestation (Weeks Since LMP) 3 Weeks (5.8-71.2 mIU/mL) 4 Weeks (9.5-750 mIU/mL) 5 Weeks (217-7138 mIU/mL) 6 Weeks (158-34690 mIU/mL) 7 Weeks (3697-032843 mIU/mL) 8 Weeks (04628-991666 mIU/mL) 9 Weeks (28846-003364 mIU/mL) 10 Weeks (90675-296637 mIU/mL) 12 Weeks (23321-397085 mIU/mL) Referenced to 4th IS of [facility] Performed By: #### 18277-2 # ### [facility] CLIA [id number] [address] [place] [address] STATES [place] [facility] B-HCG SERPL-ACNC Collected: 5 10:44 AM Status: F Source: [facility] Order Comment: Specimen Type : BLOOD SPECIMEN Ordering Facility: [facility] Address: [address] [place] [address] TYPE CODE TESTS RESULT OUT OF RANGE REFERENCE UNITS LAB 60848-7(LOINC) B-HCG SerPl-aCnc 65383.0 High <5.0 mIU/mL Result Comment: QUANTITATIVE HCG NORMAL RANGES Weeks of Gestation (Weeks Since LMP) 3 Weeks (5.8-71.2 mIU/mL) 4 Weeks (9.5-750 mIU/mL) 5 Weeks (217-7138 mIU/mL) 6 Weeks (158-73920 mIU/mL) 7 Weeks (3697-155823 mIU/mL) 8 Weeks (33764-259666 mIU/mL) 9 Weeks (28700-362542 mIU/mL) 10 Weeks (33071-862059 mIU/mL) 12 Weeks (69708-612869 mIU/mL) Referenced to 4th [facility] of [facility] Performed By: #### [id number] # ### [facility] CLIA [id number] [address] [place] [address] CNPN Observed: 01/23/2025 12:00 AM Status: COMPLETED Source: [facility] Telephone (OBGYWM) CON MATTHEWS ([id number]) 1995 F Date Time Provider Department 01/23/25 REG ZAZUETA During your visit today, we recorded the following information about you: Lawanda Jain, [place] 01/23/2025 9:28 AM Signed Awaiting follow up HCG levels. Please see visit note from 01/20/25. Leanna Hou APRN.CNLawanda Rowe, [place] 01/23/2025 9:28 AM Signed Patient called in requesting to speak with Leanna Hou. Patient made aware that provider is out of the office and not back until Thursday. Patient was seen in office on 01/20 for dating US and no cardiac activity was seen. Patient then saw CP to discuss and HCG quant was done. Patient states she has not had any bleeding or cramping since office visit on Thursday. Patient states she would like to discuss options with provider, but would also like another ultrasound for her peace of mind. Patient instructed to also complete the 2nd HCG level today. Patient asking for message to be sent to provider hospital television rental clerk. Patient states to call her home number first and then cell. [place] Rogers Jessica, APRN.CNM 01/23/2025 9:39 AM Signed Ultrasound on 01/20 showed missed and diagnosis given. At this time, follow up US is not recommended but can discuss with provider at visit. Patient can make appointment to follow up with Jhony and discuss further if she desires. I don't think she needs repeat quant today and can make follow up visit to discuss options. Reg Mann APRN.Eugene Fish RN 01/23/2025 10:17 AM Signed Pt was advised by CP to think about what she wanted to do over the weekend and to call back today to inform her whether she wanted Rx Cytotec to pass POC at home naturally or have DANDC completed at hospital. Pt ops for Cytotec. States she is already at [facility] to get lab drawn. Advised Pt on when to call office re: heavy bleeding precautions. Appt changed from 01/26 with CP to 01/25. Pt asking if Rx can be sent to pharmacy. Please advise. [place] Jackson Jessica, APRN.CNM 01/23/2025 12:01 PM Signed I can send prescription for Misoprostol 800mcg vaginal x1. Please have her follow-up in 48hr to see if bleeding, cramping or pain. Initial treatment failure may require an additional dose of misoprostol in 3 days and DANDC may be necessary if medical management fails. Pain control with Ibuprofen and tylenol. Keep appointment with CP for follow up. Reg Mann APRN.Eugene Fish RN 01/23/2025 12:13 PM Signed Pt notified and voiced understanding. Rx instructions reviewed with Pt. Bleeding precautions reviewed. Advised to f/u as scheduled on 01/25 with CP. Pt denies questions/concerns at this time. Eugene Rodrigez RN Allergies As of Date: 01/23/2025 Noted Allergy Reaction POISON AVIVA (VIT E-NONOXYNOL 9-MARIO*02/13/2010 7 - Swelling Date Reviewed: 01/20/2025 Reviewed by: Rashawn Denson MA - Fully Assessed Reason for Visit: Miscarriage [1752] Order(s):miSOPROStol (CYTOTEC) 200 mcg tabletPlease insert 4 tablets into vagina x1, if not effective after 24-48 hours repeat doseDisp: 4 tabletRfl: 0 Prescriptions as of 01/23/2025 - miSOPROStol (CYTOTEC) 200 mcg tablet Please insert 4 tablets into vagina x1, if not effective after 24-48 hours repeat dose - aspirin, enteric coated (ECOTRIN LOW STRENGTH) 81 mg EC tablet Take 1 tablet by mouth once daily. Problem List As Of Date 01/23/2025 Noted Resolved BMI 36.0-36.9,adult [Z68.36] 01/06/2025 Encounter for supervision of normal first pregn*01/06/2025 Prescriptions ordered this encounter Disp Refills Start End MISOPROSTOL 200 MCG TABLET 4 ta* 0 01/23/2025 Sig: Please insert 4 tablets into vagina x1, if not effective after 24-48 hours repeat dose Encounter Status:Closed by EUGENE RODRIGEZ on 01/23/25 PROGRESS Observed: 01/22/2025 12:45 PM Status: COMPLETED Source: [facility] HNO ID: [id number] Author: ROBERT LEW MD Service: ? Author Type: Physician Type: Progress Notes Filed: 01/22/2025 12:45 Note Text: Con Matthews presents for OB ultrasound. Please see report under the imaging tab. Robert Lew MD B-HCG SERPL-ACNC Collected: 10:03 AM Status: F Source: [facility] Order Comment: Specimen Type : BLOOD SPECIMEN Ordering Facility: [facility] Address: [address] [place] [address] TYPE CODE TESTS RESULT OUT OF RANGE REFERENCE UNITS LAB 36614-8(LOINC) B-HCG SerPl-aCnc 26818.0 High <5.0 mIU/mL Result Comment: QUANTITATIVE HCG NORMAL RANGES Weeks of Gestation (Weeks Since LMP) 3 Weeks (5.8-71.2 mIU/mL) 4 Weeks (9.5-750 mIU/mL) 5 Weeks (217-7138 mIU/mL) 6 Weeks (158-28995 mIU/mL) 7 Weeks (3697-950975 mIU/mL) 8 Weeks (92703-024755 mIU/mL) 9 Weeks (32523-942227 mIU/mL) 10 Weeks (62050-145270 mIU/mL) 12 Weeks (76999-394461 mIU/mL) Referenced to 4th IS of [facility] Performed By: #### [id number] # ### [facility] CLIA [id number] [address] [place] [address] OF [facility] PROGRESS Observed: 01/11/2025 11:39 AM Status: COMPLETED Source: [facility] HNO ID: [id number] Author: ROSIO DAVIES MD Service: ? Author Type: Physician Type: Progress Notes Filed: 01/11/2025 11:46 Note Text: DM- pt seen for bleeding in - reports started with dark brown spotting last night (01/10) at 6:30pm with some tiny clots and cramping. No bright red bleeding, no passage of tissue. Pt offers no other concerns. Pt reports has not had intercourse since Thursday, no symptoms of vaginal infection. BP 120/78 Wt 100.2 kg (221 lb) LMP 10/28/2024 BMI 36.78 kg/m? Gen: female- in NAD Vaginal: small amount dark brown discharge, cervical os appears closed, no active bleeding from OS Transvaginal us- +FHR 126, measuring [id number] report in viewpoint Participation of a fellow, resident, medical student, or advanced practice provider student in performing the sensitive examination was discussed with the patient or authorized account retention representative. The patient or authorized account retention representative has agreed to proceed with the sensitive examination. (Sensitive examination includes inspection and/or palpation of the breasts, pelvis, prostate and anorectal regions) (O20.0) Threatened (primary encounter diagnosis) (O20.9) Vaginal bleeding affecting early 1) pelvic rest reviewed 2) ultrasound confirm viable 3) bleeding precautions reviewed 4) RTO as scheduled I spent a total of 20 minutes on the date of the service which included preparing to see the patient, [id number] patient care, completing clinical documentation, obtaining and/or reviewing separately obtained history, performing a medically appropriate examination, counseling and educating the patient/family/caregiver, and ordering medications, tests, or procedures. Rosio Sawyer MD PROGRESS Observed: 01/11/2025 11:06 AM Status: COMPLETED Source: [facility] HNO ID: [id number] Author: LOUIS FISCHER MA Service: ? Author Type: Brokerage Manager Type: Progress Notes Filed: 01/11/2025 11:46 Note Text: OB point of care ultrasound was performed. See imaging tab for details. Louis Fischer MA PAP TEST Collected: 9:16 AM Status: F Source: [facility] Order Comment: Specimen Type : FLUID SPECIMEN Ordering Facility: [facility] Address: [address] [place] [address] TYPE CODE TESTS RESULT OUT OF RANGE REFERENCE UNITS PATHOLOGY [id number] CASE REPORT Result Comment: Gynecologic Cytology Report Case: [id number] Authorizing Provider: Carolina Rosales APRN.ACCOUNT SERVICE REPRESENTATIVE Collected: 01/06/2025 09:16 AM Ordering Location: OB/Gynecology Received: 01/06/2025 01:43 PM First Screen: Joseph, Gaby, CT, ASCP Rescreen: Rosemary Garnica Tech Specimen: Pap Test, ThinPrep, Cervix PATHOLOGY [id number] ADEQUACY Result Comment: Satisfactory for interpretation. Transformation zone present PATHOLOGY [id number] INTERPRETATIO N, CYTOLOGY, ASSEMBLER SANDAL PARTS Result Comment: Negative for intraepithelial lesion or malignancy. at 1518 EDT PATHOLOGY [id number] CLINICAL HISTORY, CYTOLOGY, ASSEMBLER SANDAL PARTS Routine Exam PATHOLOGY [id number] LMP 09/28/2024 PATHOLOGY PAPDC PAP DISCLAIMER COMMENT The Pap Smear is a screening test for cervical cancer. False negative results occur with all screening tests, emphasizing the need for rescreening at recommended intervals, and clinical correlation. PATHOLOGY PAPIC PAP BIOLOGIST COMMENT This specimen has been analyzed by the [employer] BioPharmaPrep Imaging System, an automated imaging and review system, which assists the laboratory in evaluating cells on ThinPrep Pap tests. Following automated imaging, selected flynn from every slide are reviewed by a cytotechnologi . PATHOLOGY [facility] FINAL PERFORMING LAB Result Comment: Technical co mponent, exhaust emissions inspector screening performed at [facility], [address], [place] [address] CLIA# [id number] Diagnostic interpretation performed at [facility], [address], [place] [address] CLIA# [id number] Hold Worker: Nara Quick M.D. Performed By: #### [id number] # ### [facility] CLIA [id number] [address] [place] [address] [place] [facility] CLIA [id number] [address] [place] [address] [place] BACTERIA UR CULT Observed: 01/06/2025 9:16 AM Status: F Source: [facility] ORGANISM ID: 1 <10,000 CFU/ml Normal urogenital piotr Performed By: #### 630-4 ### # [facility] CLIA [id number] [address] [place] [address] [place] C TRACH+GC DNA SPEC QL BAILEY+PROBE Collected: 01/06/2025 9:16 AM Status: F Source: [facility] Order Comment: Specimen Type : SWAB Ordering Facility: [facility] Address: [address] [place] [address] TYPE CODE TESTS RESULT OUT OF RANGE REFERENCE UNITS LAB 90853-2(LOINC) N gonorrhoea rRNA Spec Ql BAILEY+probe Not detected Not detected LAB 04464-6(LOINC) C trach rRNA Spec Ql BAILEY+probe Not detected Not detected Performed By: #### 52281-0, TRVAMP #### [facility] CLIA [id number] [address] [place], [place] [address] [place] TRICHOMONAS VAGINALIS NAAT Collected: 0 01/06/2025 9:16 AM Status: F Source: [facility] Order Comment: Specimen Type : SWAB Ordering Facility: [facility] Address: [address] [place] [address] TYPE CODE TESTS RESULT OUT OF RANGE REFERENCE UNITS LAB 67913-7(LOINC) T vaginalis DNA Spec Ql BAILEY+probe Not detected Not detected Performed By: #### 73791-9, TRVAMP #### [facility] CLIA [id number] [address] [place] [address] HIGH RISK HUMAN PAPILLOMA VIRUS (HPV), PCR FOR DETECTION AND GENOTYPING Collected: 01/06/2025 9:16 AM Status: F Source: [facility] Order Comment: Specimen Type : FLUID SPECIMEN Ordering Facility: [facility] Address: [address] [place] [address] TYPE CODE TESTS RESULT OUT OF RANGE REFERENCE UNITS LAB 83606-5(LOINC) HPV16 Ag Spec Ql Not detected Not detected LAB 48605-4(LOINC) HPV18 Ag Spec Ql Not detected Not detected LAB 38543-8(LOINC) HPV HR 12 DNA Cvx Ql BAILEY+probe Not detected Not detected Result Comment: High Risk HP V Other Type includes HPV types 31, 33, 35, 39, 45, 51, 52, 56, 58, 59, 66 and 68. Performed By: #### HPVHRT ## ## [facility] CLIA [id number] [address] [place] [address] [place] PROGRESS Observed: 01/06/2025 7:59 AM Status: COMPLETED Source: [facility] HNO ID: [id number] Author: CAROLINA ROSALES APRN.ACCOUNT SERVICE REPRESENTATIVE Service: ? Author Type: Nurse Practitioner Type: Progress Notes Filed: 01/06/2025 11:52 Note Text: Patient declined wealth management director. INITIAL OB ASSESSMENT HPI: Con is a 29 year old White here to establish Obstetrical Care. Patient's last menstrual period was 10/28/2024. from OB Dating Form. Irregular menstrual cycle was planned Complaints: No OB History Gravida1 Para0 Term0 Preterm0 AB0 Living0 SAB0 IAB0 Ectopic0 Multiple0 Live Births0 Previous history: Prior : never History of 4th degree laceration: No History of shoulder dystocia: No History of Hypertensive disorders including pre-eclampsia or gestational hypertension: No History of gestational diabetes: No Patient's Risk Screening for delivery: Have you had a prior jonas between 20w and 36w6d? No How many pregnancies have you had before? 0 Did you have a previous baby with a GBS Infection? No Please select all that apply for any prior : N/A MEDICAL/PSYCHOSOCIAL HISTORY: History of hemorrhage or bleeding concerns: No Thyroid Disease: No History of chronic hypertension: No History of pre-existing diabetes: No No results found for: ABORHD BMI 36.64 kg/(m2) Last Pap: History of abnormal pap: No Pt reported never had a pap Prior treatment for cervical dysplasia: none. Last HPV: History of STDs: N/A Partner History of STDs: None Did you have a partner with Herpes? No Tobacco use: No E-Cigarette/Vaping Use: No Caffeine use: Yes Drug use: No Alcohol use: No Multivitamin with Folic acid: No Would refuse blood transfusion if medically necessary: No Social Needs: How often does this describe you? I don't have enough money to pay my bills: Never Within the past 12 months, have you worried that your food would run out before you had money to buy more? Never In the past 12 months, has lack of reliable transportation kept you from going to medical appointments or work, or from getting things needed for daily living? Never In the past 12 months, have you had any concerns about having a place to live, or about the condition or quality of your housing? Never Would you like more information on any of the following (please check all that apply)? Not interested Social History: Do you have any history of depression, anxiety, PTSD, or other mood problems? No Do you have a history of abuse or trauma that may impact your experience? No Are you currently employed? Yes Depression/Anxiety Screening: denies symptoms of depression. OB Depression and Anxiety Screening- This Encounter (since 01/05/2025) Over the past 2 weeks have you felt down, depressed, or hopeless? Negative Over the past two weeks, have you felt little interest or pleasure in doing things?? Negative Feeling nervous, anxious or on edge 1-Several days Not being able to stop or control worrying 0-Not al all Anxiety Pre-Screening Total (If >/= 3 additional questions will be reviewed) 1 Genetic Screening: Partner present: Yes Patient verbalized knowledge of partner family health history: Yes Do you or your partner have any personal or family history of defects not previously discussed: No Do you have history of a complicated by anomaly, genetic condition, or demise: No Preeclampsia Risk Screening: Screening for prevention of preeclampsia: High risk factors: None Moderate risk ractors: Nulliparity and Obesity (body mass index greater than 30) OB Risk Screening: Completed, no positive findings documented. 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 90 tablet 3 No current facility-administered medications for this visit. Allergies As of Date: 01/06/2025 Allergen Noted Reaction POISON AVIVA [VIT E-NONOXYNOL 9-MARIO*02/13/2010 Swelling Fully Assessed 01/06/2025 Does patient have penicillin allergy: No (Pt reported never had ATB) REVIEW OF SYSTEMS: GENERAL: Negative for: Fever or Chills HEENT: Negative for: Headache, Impaired Vision, Ringing in Ears, Nosebleeds NECK: Negative for: Swelling, Pain, Stiffness RESPIRATORY: Negative for: Cough, Shortness of breath, Wheezing GASTROINTESTINAL: Negative for: Heartburn, Constipation, Diarrhea, Blood in stool, Vomiting and Positive for: Nausea MUSCULOSKELETAL: Negative for: Muscle or joint pain, stiffness, Joint swelling NEUROLOGIC/PSYCHIATRIC: Negative for: Weakness, Paralysis, Numbness, Tingling, Tremor, Anxiety, Depression, Memory loss SKIN: Negative for: Rash, Itching GENITOURINARY: Negative for: vaginal itching, vaginal discharge, hematuria or dysuria SENSITIVE EXAM: The sensitive examination was discussed with the Patient or Patient's Authorized Paramedic Supervisor. As applicable, any other physician, advance practice provider, medical student, or other health professional student that will be observing or involved in the sensitive examination for educational or training purposes was discussed with the Patient or Authorized Paramedic Supervisor. The Patient or Authorized Paramedic Supervisor has agreed to proceed with the sensitive examination. (Sensitive examination includes inspection and/or palpation of the breasts, pelvis, prostate and anorectal regions). PHYSICAL EXAM: BP 122/68 Ht 5' 5 (1.65m) Wt 220 lb 3.2 oz (99.9kg) LMP 10/28/2024 BMI 36.64 kg/(m2). GENERAL: pleasant in no apparent distress DERMATOLOGY: Normal, without lesions, non-icteric, and non-hirsute NECK: Supple, full range of motion, no adenopathy, and thyroid normal CHEST: Normal inspiratory effort BREAST: soft, non-tender, symmetric, no dominant mass, normal nipple-areolar complex, no lymphadenopathy, and no nipple discharge ABDOMEN: soft, non-tender, and no masses NEURO: alert and oriented x3,exam grossly non-focal PELVIS: External genitalia normal without lesions. Perineal body intact. No vaginal or cervical lesions. Cervix closed. No adnexal masses or tenderness. Clinical Pelvimetry: Pelvimetry clinically assessed as adequate Limited OB ultrasound exam: single intrauterine , positive cardiac activity, and POCUS performed. +cardiac activity, CRL NOT consistent with LMP. MARY changed to 09/02/25 Carolina Rosales APRN.CNPASSESSMENT: 29 year old at 5w6d wks gestational age PLAN: 1) Patient oriented to practice. Patient given new OB orientation folder. Discussed nutrition, folic acid supplementation, dietary guidelines, exercise, smoking, alcohol, caffeine, and drug use. Discussed gestational weight gain guidelines. Discussed routine OB labs including STD/HIV. Discussed how to access Your guide to a health and the Business Applications Analyst. Reviewed midwifery and note keeper services that are available. 2) Screening: Hemoglobin A1C: ordered Baby Aspirin: The patient has been counseled about the potential benefits of low dose aspirin in and our recommendation that this be offered to all patients, regardless of whether they meet the high risk criteria specified above. She Accepts Aneuploidy Screening: Discussed aneuploidy screening, nuchal translucency/first trimester early anatomy ultrasound and NIPT. The risks/benefits and limitations of NIPT/aneuploidy screening were reviewed including the potential for false negative and false positive results. The availability of genetic counseling was reviewed. Information on aneuploidy screening was provided. The patient chooses to proceed with First trimester early anatomy ultrasound (12-13w6d) Myriad Carrier Screening: Discussed myriad carrier screening. We discussed the availability of professional-society guided carrier screening and reviewed the conditions screened and limitations of screening. The availability of genetic counseling was reviewed. Information on carrier screening was provided. The patient Declines 3) Patient offered option of Virtual Visits. Patient unsure. May consider in future. 4) Obesity (BMI >30), will order early glucose screen or Hemoglobin A1C. 5) US in 2 weeks for dating Follow up in 4 weeks or sooner prn for OB visit Carolina Rosales APRN.ACCOUNT SERVICE REPRESENTATIVE ALLERGIES DATE TYPE / CODE NAME / CODE REACTION SEVERITY SOURCE 02/13/2010 DRUG/[id number](SN OMED CT) VIT E-NONOXYNOL 9-ALOE VERA Swelling [facility] 02/13/2010 DRUG/[id number](SN OMED CT) VIT E-NONOXYNOL 9-ALOE VERA SWELLING [facility] ENCOUNTERS ADMIT/DISCHARGE ACCOUNT NUMBER ADMITTING ENCOUNTER CLASS LOCATION SOURCE 07/18/2025/ 5 [id number] Emergency Building:SAME DRoom: [id number]: [address] 03/02/2025 [id number] Ambulatory [facility] HospitalBuild ing:[facility] 02/21/2025/ 5 [id number] Ambulatory [facility] HospitalBuild ing:[address] 02/03/2025/ 5 [id number] Ambulatory [facility] HospitalBuild ing:[address] 02/03/2025/ 5 [id number] Ambulatory [facility] HospitalBuild ing:OB [facility] 02/03/2025/ 5 [id number] Ambulatory [facility] HospitalBuild ing:OB [facility] 01/30/2025/ 5 [id number] Ambulatory [facility] HospitalBuild ing:[address] 01/25/2025/ 5 [id number] Ambulatory [facility] HospitalBuild ing:[address] 01/25/2025/ 5 [id number] Ambulatory [facility] HospitalBuild ing:OB [facility] 01/23/2025/ 5 [id number] Ambulatory [facility] HospitalBuild ing:[address] 01/20/2025/ 5 [id number] Ambulatory [facility] HospitalBuild ing:WMOB [facility] 01/20/2025/ 5 [id number] Ambulatory [facility] HospitalBuild ing:WOL2 [facility] 01/20/2025/ 5 [id number] Ambulatory [facility] HospitalBuild ing:WMOB [facility] 01/11/2025/ 5 [id number] Ambulatory [facility] HospitalBuild ing:WMOB [facility] 01/06/2025/ 5 [id number] Ambulatory [facility] HospitalBuild ing:WMOB [facility] PAYERS ENCOUNTER GUARANTOR PAYER SUBSCRIBER SOURCE 07/18/2025 CON ROBINS: [id number] [place] [address]Tel: () Primary Insurance:ANTHEMPo licy Number: [id number] nataliya Date:2022-08-17 CRUZ SINGLETONB: [id number] [place] [address]Tel: () [facility] 03/02/2025 Primary Insurance:BLUE ACCESS PPOPolicy Number: [id number] nataliya Date:4736-77-79Xtw n Name:Meg ROBINS: [id number] [address] 02/21/2025 Primary Insurance:BLUE ACCESS PPOPolicy Number: [id number] nataliya Date:4476-76-33Wiz n Name:Meg ROBINS: [id number] [address] 02/03/2025 Primary Insurance:BLUE ACCESS PPOPolicy Number: [id number] nataliya Date:1766-33-92Plb n Name:Meg ROBINS: [id number] [address] [place] [address] [facility] 02/03/2025 Primary Insurance:BLUE ACCESS PPOPolicy Number: [id number] nataliya Date:9505-62-16Bad n Name:Meg ROBINS: [id number] [address] [place] [address] [facility] 02/03/2025 Primary Insurance:BLUE ACCESS PPOPolicy Number: [id number] nataliya Date:8378-73-53Iav n Name:Meg ROBINS: [id number] [address] [place] [address] [facility] 01/30/2025 Primary Insurance:BLUE ACCESS PPOPolicy Number: [id number] nataliya Date:8653-09-45Bzw n Name:Meg ROBINS: [id number] [address] [place] [address] [facility] 01/25/2025 Primary Insurance:BLUE ACCESS PPOPolicy Number: [id number] nataliya Date:3066-71-16Xku n Name:Meg ROBINS: [id number] [address] [place] [address] [facility] 01/25/2025 Primary Insurance:BLUE ACCESS PPOPolicy Number: [id number] nataliya Date:2529-01-02Dtd n Name:Meg ROBINS: [id number] [address] [place] [address] [facility] 01/23/2025 Primary Insurance:BLUE ACCESS PPOPolicy Number: [id number] nataliya Date:9206-10-21Cjd n Name:Meg ROBINS: [id number] [address] [place] [address] [facility] 01/20/2025 Primary Insurance:BLUE ACCESS PPOPolicy Number: [id number] nataliya Date:4367-26-02Eyn n Name:Meg RBOINS: [id number] [address] [place] [address] [facility] 01/20/2025 Primary Insurance:BLUE ACCESS PPOPolicy Number: [id number] nataliya Date:2684-29-76Lju n Name:Meg ROBINS: [id number] [address] [place] [address] [facility] 01/20/2025 Primary Insurance:BLUE ACCESS PPOPolicy Number: [id number] nataliya Date:[id number] n Name:Meg ROBINS: [id number] [address] [place] [address] [facility] 01/11/2025 Primary Insurance:BLUE ACCESS PPOPolicy Number: [id number] nataliya Date:[id number] n Name:Meg ROBINS: [id number] [address] [place] [address] [facility] 01/06/2025 Primary Insurance:BLUE ACCESS PPOPolicy Number: [id number] nataliya Date:2893-75-45Byf n Name:Meg ROBINS: [id number] [address] [place] [address] [facility]
--- NOTE | 2025-08-03 16:02 | PAT.ANESEVAL ---
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 When Was Last Pacemaker Check QUESTION #4 FULL TEXT: You/Your Family Experience fever (hyperthermia) with Anesthesia Last Oral Intake Last Oral intake: Last Oral Intake NPO since Meds taken in AM with sips of water? Meds patient instructed to take am of surgery PONV PONV - spring internship: PONV - spring internship Female Yes 08/03/25 08:56 HX of Motion Sickness No 08/03/25 08:56 HX of N/V After Surgery No 08/03/25 08:56 Non-Smoker Yes 08/03/25 08:56 Duration of Surgery greater No 08/03/25 08:56 than 60 minutes Number of Risk Factors 2 08/03/25 08:56 PONV Score Moderate Risk 08/03/25 08:56 Height & Weight Height & Weight: Anesthesia: Height & Weight Height 5 ft 5 in 07/24/25 08:10 Respiratory Assessment Respiratory Assessment - spring internship: Respiratory Tract Infection Hx - spring internship Hx Respiratory Tract Infection No 08/03/25 08:56 STOP Sleep Apnea STOP Sleep Apnea - spring internship: STOP Sleep Apnea - spring internship Hx Hypertension No 08/03/25 08:56 Hx Sleep Apnea Yes 08/03/25 08:56 CPAP Yes 08/03/25 08:56 BIPAP No 08/03/25 08:56 Do you snore loudly (louder than talking or can be heard Do you often feel tired/ fatigued/ sleepy during daytime? Has anyone observed you stop breathing during sleep? STOP Results Positive 08/03/25 08:56 QUESTION #5 FULL TEXT : Do you snore loudly (louder than talking or can be heard through closed doors)? Tobacco Use History Tobacco Use History - spring internship: Tobacco Use History - spring internship Tobacco Use Smoking Status Former smoker 08/03/25 08:56 Hx Tobacco Use No 08/03/25 08:56 Years Smoking Packs Smoked per Day Smoking Cessation Date was Yes - quit smoking within 15 08/03/25 08:56 within the last 15 years years Hx Smoking Cessation Date 12/10/24 08/03/25 08:56 Hx Smoking Cessation Counseling Hematologic Medial History Hematologic Hx - spring internship: Hematologic Medical Hx - [employer] Hx of Blood Transfusion No 08/03/25 08:56 Hx of Transfusion in last 3 No 08/03/25 08:56 Months Date of Last Transfusion (if within last 3 months) Ever experience any problems No 08/03/25 08:56 with transfusion(s)? Specify any problems Hx of Preganancy in last 3 No 08/03/25 08:56 Months Nurse Filling Out Transfusion [email or web address] 08/03/25 08:56 & Questions: Date: 08/03/25 08/03/25 08:56 Time: 08:57 08/03/25 08:56 Patient unable to answer at this time (ie. confused, unrespo /Reproduction History /Reproductive History - spring internship: /Reproductive Hx- spring internship Hx Now No 08/03/25 08:56 Gestational Age (in weeks): EDC: Hx Hx Para Hx Section SAB No 08/03/25 08:56 [facility] Medical History (Updated 08/03/25 @ 08:55 by Tonia Suggs) Wears contact lenses Wears glasses Former smoker Sleep apnea History of echocardiogram Cholecystitis, acute with cholelithiasis CPAP (continuous positive airway pressure) dependence Home Medications ?Medication ?Instructions ?Recorded ?Last Taken ?Type acetaminophen 325 mg tablet 650 mg PO ONCE PRN fever or pain 07/25/25 Unknown History (Tylenol) Allergy/AdvReac Type Severity Reaction Status Date / Time No Known Allergies Allergy Verified 08/03/25 08:47 Family History Maternal Grandfather Colon cancer Grandfather Stomach cancer Surgical History (Updated 08/03/25 @ 08:55 by Tonia Suggs) Status post laparoscopic cholecystectomy Social History (Updated 07/27/25 @ 16:00 by Evangelina Downing) household members: spouse Smoking Status: Former smoker alcohol intake: never substance use type: does not use what type of physical activity do you participate in: none Audit: Pertinent Findings Pertinent Findings EKG Perinent findings: 07/21/2025. Normal sinus rhythm with sinus arrhythmia. Minor nonspecific T wave abnormality. Echo (EF%) pertinent findings: 07/20/2025. EF is 60%. No aortic stenosis. Recommendation Anesthesia Recommendation Anesthesia recommendation: OPTIMIZED for anesthesia
[2025-08-07] VITALS (8 sets, daily range): BP systolic 103–121; BP diastolic 59–82; PULSE 65–84; RESP 16–18; TEMP 36.3–36.8; O2SAT 96–99; BMI 36.0
--- NOTE | 2025-08-07 11:26 | HP.PCM_ITS ---
HPI - General General Date of Admission: 08/07/25 Date of Service: 08/07/25 Chief Complaint: bile leak HPI Narrative CON ANN, is a 29 F who presentsSAAC ANN, is a 29-year-old woman, status post (s/p) cholecystectomy for acute cholecystitis, who presents with persistent or worsening symptoms. She reported increasing right upper quadrant (RUQ) abdominal pain, which is constant and described as a dull ache. She also c omplained of nausea and decreased appetite. The patient denies any new fever, chills, or vomiting. She has not had a bowel movement since yesterday but reports passing gas. The patient reported that the pain is different from her preoperative biliary colic. She had a cholecystectomy 07.20.[address] Austyn ALEGRE scan 07.25.25 There is abnormal progression of radiotracer activity along the liver margin and into the right peritoneum, versus a drain in this region if present. Clinical correlation is recommended. OV 07.27.25 pt reports that some of her symptoms have improved since having her gallbladder out. States that she has been having diarrhea 2-3 times a day since her cholecystectomy. [facility] Medical History Wears contact lenses Wears glasses Former smoker Sleep apnea History of echocardiogram Cholecystitis, acute with cholelithiasis CPAP (continuous positive airway pressure) dependence Home Medications ?Medication ?Instructions ?Recorded ?Last Taken ?Type acetaminophen 325 mg tablet 650 mg PO ONCE PRN fever o r pain 07/25/25 Unknown History (Tylenol) Allergy/AdvReac Type Severity Reaction Status Date / Time No Known Allergies Allergy Verified 08/03/25 08:47 Family History Maternal Grandfather Colon cancer Grandfather Stomach cancer Surgical History Status post laparoscopic cholecystectomy Social History household members: spouse Smoking Status: Former smoker alcohol intake: never substance use type: does not use what type of physical activity do you participate in: none ROS Constitutional Constitutional: Denies fatigue, fever(s), poor appetite, weight gain or weight loss Gastrointestinal Gastrointestinal: Denies belching, bloating, change in bowel habits, change in stool character, chewing difficulty, coffee ground emesis, constipation, cramping, diarrhea, dyspepsia, dysphagia, early satiety, excessive flatus, fecal incontinence, heartburn, hematemesis, hematochezia, hemorrhoids, loose stools, melena, nausea, odynophagia, rectal bleeding, tenesmus, vomiting or weight changes Physical Exam Const alert, oriented x3, no apparent distress and healthy appearing General Appearance: cooperative GI normal to inspection, nondistended, normoactive bowel sounds, soft to palpation, non-tender and non-distended Percussion: normal to percussion Rectal Exam: deferred Assessment & Plan Assessment/Plan (1) Bile leak: (2) Status post laparoscopic cholecystectomy: PLAN: Assessment and Plan Assessment and Plan (1) Status post laparoscopic cholecystectomy: Status: Acute (2) Cholecystitis, acute with cholelithiasis: Status: Acute (3) Bile leak: Status: Acute Plan: 29-year-old woman with a bile leak following a cholecystectomy. The HIDA scan confirms the presence of a postoperative biliary leak, which is the cause of her persistent RUQ pain, nausea, and anorexia. * Endoscopic retrograde cholangiopancreatography (ERCP) to identify the source of the leak and potentially place a stent. * Continue Augmentin . Medications: Changed From amoxicillin-pot clavulanate 500-125 mg (Augmentin) 1 TAB PO BID 10 tabs 0RF To amoxicillin-pot clavulanate 500-125 mg (Augmentin) 1 TAB PO BID 20 tabs 0RF 10 days
--- NOTE | 2025-08-07 11:30 | RAD_ITS ---
PROCEDURE: ERCP BILIARY/PANCREAS; O.R. FLUORO FOR C-ARM 08/07/2025 REASON FOR EXAM: ERCP TECHNIQUE: Procedure Code: RADERCP; RADORFL_C_ARM Modality: DX Procedure: ERCP BILIARY/PANCREAS; O.R. FLUORO FOR C-ARM RAD/ERCP Biliary/Pancreas IMPRESSION: Fluoroscopy was performed for ERCP. 6 fluoroscopic images were also obtained Reading Location: [id number]
--- NOTE | 2025-08-07 11:30 | RAD_ITS ---
PROCEDURE: ERCP BILIARY/PANCREAS; O.R. FLUORO FOR C-ARM 08/07/2025 REASON FOR EXAM: ERCP TECHNIQUE: Procedure Code: RADERCP; RADORFL_C_ARM Modality: DX Procedure: ERCP BILIARY/PANCREAS; O.R. FLUORO FOR C-ARM RAD/O.R. Fluoro for C-Arm IMPRESSION: Fluoroscopy was performed for ERCP. 6 fluoroscopic images were also obtained Reading Location: [id number]
[2025-08-07] MEDS: Lactated Ringers 1,000 ML 15 ML IV (12:05)
[2025-08-07 12:13] LABS: Internal QC Validated? YES +Cl - CLEAR BKGD; Pregnancy, Urine Negative Negative; Record Kit Lot#,Urine Preg 980607
--- NOTE | 2025-08-07 12:14 | PCM.PRE.AN2 ---
ASA Classification* ASA Classification ASA Classification: 2 Assessment & Plan Anesthesia* Anesthesia Assessment Anesthesia Assessment: Discussed sedation and/or anesthesia options, risks, benefits, and alternatives with patient/parents/legal guardian/POA. Questions invited. The patient/parents/legal guardian/POA seems to understand and agrees to proceed with anesthesia plan. Reviewed the physical assessment, medical history, allergy history and patient home medications list prior to surgery/procedure/anesthetic and documented any changes. Performed airway and anesthesia risk assessments. Anesthesia Type Anesthesia Type: General History Source History Obtained from:: Patient and Chart Anesthesia Focused Assessment* Temperature: 98.3 F Pulse Rate: 80 Blood Pressure: 121/66 Respiratory Rate: 18 Pulse Ox: 99 Airway Assessment Mouth opens: >3 cm Mallampati Score: II Labs Anesthesia Preop lab: CBC WBC, (4.4-11.0) 14.5 K/mm3 H 07/21/25, 04:50 RBC, (4.2-5.4) 3.67 M/mm3 L 07/21/25, 04:50 Hgb, (12.0-15.0) 10.2 g/dL L 07/21/25, 04:50 Hct, (37-47) 30.9 % L 07/21/25, 04:50 Plt Count, (150-450) 271 K/mm3 07/21/25, 04:50 CHEMISTRY Potassium, (3.3-5.1) 3.4 mmol/L 07/21/25, 04:50 Sodium, (133-145) 136 mmol/L 07/21/25, 04:50 BUN, (4-19) 4 mg/dL 07/21/25, 04:50 Creatinine, (0.70-1.20) 0.58 mg/dL L 07/21/25, 04:50 Glucose, (70-99) 127 mg/dL H 07/21/25, 04:50 COAG Urine Test Negative Negative Today, 11:38 Pre-Assessment Diagnosis/Proposed Procedure Planned Operative Procedure(s): ERCP Anesthesia History Anesthesia History - claim approver: Anesthesia History - claim approver Hx Hospitalization No 08/03/25 08:56 Any Problems With Anesthesia No 08/03/25 08:56 Cholinesterase deficiency No 08/03/25 08:56 You/Your Family Experience No 08/03/25 08:56 fever (hyperthermia) with Relationship Recent Exposure to Contagious No 08/07/25 11:43 Disease Does patient have nerve No 08/03/25 08:56 stimulator Patient instructed to have device shut off --Does patient have Pacemaker No 08/07/25 11:43 or ICD? When Was Last Pacemaker Check QUESTION #4 FULL TEXT: You/Your Family Experience fever (hyperthermia) with Anesthesia Last Oral Intake Last Oral intake: Last Oral Intake NPO since 21:30 08/07/25 11:43 Meds taken in AM with sips of No 08/07/25 11:43 water? Meds patient instructed to take am of surgery PONV PONV - claim approver: PONV - claim approver Female Yes 08/03/25 08:56 HX of Motion Sickness No 08/03/25 08:56 HX of N/V After Surgery No 08/03/25 08:56 Non-Smoker Yes 08/03/25 08:56 Duration of Surgery greater No 08/03/25 08:56 than 60 minutes Number of Risk Factors 2 08/03/25 08:56 PONV Score Moderate Risk 08/03/25 08:56 Height & Weight Height & Weight: Anesthesia: Height & Weight Height 5 ft 5 in 08/07/25 11:43 Weight: 98.3 kg 08/07/25 11:43 Body Mass Index (BMI) 36.0 08/07/25 11:43 Respiratory Assessment Respiratory Assessment - claim approver: Respiratory Tract Infection Hx - claim approver Hx Respiratory Tract Infection No 08/03/25 08:56 STOP Sleep Apnea STOP Sleep Apnea - claim approver: STOP Sleep Apnea - claim approver Hx Hypertension No 08/03/25 08:56 Hx Sleep Apnea Yes 08/03/25 08:56 CPAP Yes 08/03/25 08:56 BIPAP No 08/03/25 08:56 Do you snore loudly (louder than talking or can be heard Do you often feel tired/ fatigued/ sleepy during daytime? Has anyone observed you stop breathing during sleep? STOP Results Positive 08/03/25 08:56 QUESTION #5 FULL TEXT : Do you snore loudly (louder than talking or can be heard through closed doors)? 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 Specify any problems Hx of Preganancy in last 3 No 08/03/25 08:56 Months Nurse Filling Out Transfusion [email or web address] 08/03/25 08:56 & Questions: Date: 08/03/25 08/03/25 08:56 Time: 08:57 08/03/25 08:56 Patient unable to answer at this time (ie. confused, unrespo /Reproduction History /Reproductive History - claim approver: /Reproductive Hx- claim approver Hx Now No 08/03/25 08:56 Gestational Age (in weeks): EDC: Hx Hx Para Hx Section SAB No 08/03/25 08:56 Active Medications Active Medications: Current Medications Generic Name Dose Route Start Last Admin Trade Name Freq PRN Reason Stop Dose Admin Lactated Ringer's 1,000 mls @ 15 mls/hr 08/07/25 11:30 08/07/25 12:05 IV 15 mls/hr .Q48H VEE Administration PFSH Medical History Wears contact lenses Wears glasses Former smoker Sleep apnea History of echocardiogram Cholecystitis, acute with cholelithiasis CPAP (continuous positive airway pressure) dependence Home Medications ?Medication ?Instructions ?Recorded ?Last Taken ?Type acetaminophen 325 mg tablet 650 mg PO ONCE PRN fever or pain 07/25/25 Unknown History (Tylenol) Allergy/AdvReac Type Severity Reaction Status Date / Time No Known Allergies Allergy Verified 08/07/25 11:42 Family History Maternal Grandfather Colon cancer Grandfather Stomach cancer Surgical History Status post laparoscopic cholecystectomy Social History household members: spouse Smoking Status: Former smoker alcohol intake: never substance use type: does not use what type of physical activity do you participate in: none Addt'l Information Additional Findings: >4 Mets Review of Systems (Anesthesia) ROS Narrative System reviewed and no additional complaints, except as documented. Physical Exam Const alert and oriented x3 Orientation / Consciousness: awake Resp normal respiratory effort and normal air movement Auscultation: clear to auscultation bilaterally Cardio regular rate and regular rhythm Back/Spine normal ROM Neuro oriented x3 and moves all extremities
--- NOTE | 2025-08-07 13:19 | OP.PROVAT_ITS ---
08/07/2025 Godwin Chang Re : ERCP procedure for Sherice Matthews Dear Don This procedure was performed on Thursday, August 07, 2025. My impressions and recommendations are as follows: Impressions : - A biliary sphincterotomy was performed. - The biliary tree was swept and sludge was found. - One temporary stent was placed into the common bile duct. Recommendations : My findings are described in the full procedure note, which is enclosed. If I can be of further assistance, please feel free to contact me at . Sincerely, Avtar Thomas, 08/07/2025 1:19:16 PM This report has been signed electronically.
--- NOTE | 2025-08-07 13:19 | OP.ERCP_ITS ---
Patient Name: Sherice Matthews Procedure Date: 08/07/2025 12:26 PM Date of : 1995 Age: 29 Procedure: ERCP Indications: Bile leak Providers: DO Franko Go MD: Godwin Chang Medicines: General Anesthesia, Monitored Anesthesia Care Patient Profile: This is a 29 year old female. Refer to note in patient chart for documentation of history and physical. Patient has symptoms of acute right upper quadrant abdominal pain and acute jaundice. This patient has no history of previous ERCP. She is status post laparoscopic cholecystectomy within the past three months. Complications: No immediate complications. Procedure: Pre-Anesthesia Assessment: - Prior to the procedure, a History and Physical was performed, and patient medications and allergies were reviewed. The patient is competent. The risks and benefits of the procedure and the sedation options and risks were discussed with the patient. All questions were answered and informed consent was obtained. Patient identification and proposed procedure were verified by the physician in the pre-procedure area. Mental Status Examination: alert and oriented. Airway Examination: normal oropharyngeal airway and neck mobility. Respiratory Examination: clear to auscultation. CV Examination: normal. ASA Grade Assessment: II - A patient with mild systemic disease. After reviewing the risks and benefits, the patient was deemed in satisfactory condition to undergo the procedure. The anesthesia plan was to use monitored anesthesia care (MAC). Immediately prior to administration of medications, the patient was re-assessed for adequacy to receive sedatives. The heart rate, respiratory rate, oxygen saturations, blood pressure, adequacy of pulmonary ventilation, and response to care were monitored throughout the procedure. The physical status of the patient was re-assessed after the procedure. After obtaining informed consent, the scope was passed under direct vision. Throughout the procedure, the patient's blood pressure, pulse, and oxygen saturations were monitored continuously. The Duodenoscope was introduced through the mouth, and advanced to the duodenum and used to inject contrast into the bile duct. The ERCP was accomplished without difficulty. The patient tolerated the procedure well. Scope In: 12:53:05 PM Scope Out: 1:06:20 PM Total Procedure Duration Time 0 hours 13 minutes 15 seconds Findings: The grease monkey film was normal. The esophagus was successfully intubated under direct vision. The scope was advanced to a normal major papilla in the descending duodenum without detailed examination of the pharynx, larynx and associated structures, and upper GI tract. The upper GI tract was grossly normal. The bile duct was deeply cannulated with the short-nosed traction sphincterotome. Contrast was injected. I personally interpreted the bile duct images. There was brisk flow of contrast through the ducts. Image quality was adequate. Contrast extended to the entire biliary tree. Opacification of the entire opacified area and entire biliary tree was successful. The maximum diameter of the ducts was 9 mm. Dye was seen flowing into through the cystic duct into gallbladder fossa indicating a bile leak A long 0.021 inch Jagwire was passed into the biliary tree. A 5 mm biliary sphincterotomy was made with a braided traction (standard) sphincterotome using ERBE electrocautery. There was no post-sphincterotomy bleeding. To discover objects, the biliary tree was swept with a 12 mm balloon starting at the upper third of the main bile duct, middle third of the main bile duct, lower third of the main duct, bifurcation, left intrahepatic duct(s), left main hepatic duct, right intrahepatic duct(s) and right main hepatic duct. Sludge was swept from the duct. One 10 Fr by 9 cm temporary stent was placed 5 cm into the common bile duct. Bile flowed through the stent. The stent was in good position. Impression: - A biliary sphincterotomy was performed. - The biliary tree was swept and sludge was found. - One temporary stent was placed into the common bile duct. Procedure Code(s): --- Professional --- 51725, Endoscopic retrograde cholangiopancreatography (ERCP); with placement of endoscopic stent into biliary or pancreatic duct, including pre- and post-dilation and guide wire passage, when performed, including sphincterotomy, when performed, each stent [id number], Endoscopic retrograde cholangiopancreatography (ERCP); with removal of calculi/debris from biliary/pancreatic duct(s) 82018, 26, Endoscopic catheterization of the biliary ductal system, radiological supervision and interpretation CPT copyright 2021 [employer]. All rights reserved. The codes documented in this report are preliminary and upon print finishing worker review may be revised to meet current compliance requirements. Avtar Thomas DO 08/07/2025 1:19:16 PM This report has been signed electronically. Number of Addenda: 0 Note Initiated On: 08/07/2025 12:26 PM
--- NOTE | 2025-08-07 13:37 | PCM.POST.ANE ---
Anesthesia: Postop Eval I Current Vital Signs Temperature: 97.4 F Pulse Rate: 78 Blood Pressure: 117/59 Respiratory Rate: 16 Pulse Ox: 97 Oxygen Delivery Method: Room Air Assessment Airway patent: Yes Spontaneous unlabored respirations: Yes Mental status: Awake and Calm nausea: No Vomiting: No Anesthesia Complication: No Fluid Hydration Crystalloid volume administer (ml): 800 Total IV fluid infused: 800 Progress Note Anesthesia document: Postop Eval 1 completed: Yes
--- NOTE | 2025-08-07 14:31 | PCM.POSTANE2 ---
Anesthesia Postop Eval I Sum Postop Eval Completion status Anesthesia document: Postop Eval 1 completed: Yes Anesthesia Postop Eval I Summary Anesthesia Postop Eval I Summary: Anesthesia Postop Eval I: Assessment Summary Airway patent Yes 08/07/25 13:38 [email or web address] Spontaneous unlabored Yes 08/07/25 13:38 [email or web address] respirations Mental status Awake,Calm 08/07/25 13:38 [email or web address] nausea No 08/07/25 13:38 [email or web address] Vomiting No 08/07/25 13:38 [email or web address] Anesthesia Postop Eval I: Fluid Summary Crystalloid volume administer 800 08/07/25 13:38 [email or web address] (ml) Colloids volume administered ( ml) Blood Product volume administered (ml) Total IV fluid infused 800 08/07/25 13:38 [email or web address] Anesthesia Postop Eval I: Summary Notes Anesthesia Complication No 08/07/25 13:38 [email or web address] Anesthesia Complication Comment: Post-operative progress note Anesthesia: Postop Eval II Evaluation Mental status: Awake and Calm Pain Level: 0 nausea: No Vomiting: No Complications Anesthesia Complication: No
== END 2025-08-07 14:20 | disposition home or self-care (01) ==
LOC: EN 11:18 → AC 11:19
PROVIDERS: Anesthesiology; PCP Physician Assistant; Referring Provider Physician Assistant; Visit Provider Internal Medicine Gastroenterology
PROC: (CPT 43260; principal; 2025-08-07 12:10)
DX: Z46.59 Encounter for fitting and adjustment of other gastrointestinal appliance and device (principal); Z87.891 Personal history of nicotine dependence; Z90.49 Acquired absence of other specified parts of digestive tract; K83.8 Other specified diseases of biliary tract
CPT/HCPCS: 43274; 43264; 00732; 74330; 76000; 81025; A4216; J2405

== ENCOUNTER 2025-09-27 10:14 | Day surgery (SDC) | payer BC, SELFPAY ==
--- NOTE | 2025-09-22 14:50 | PAT.ANESEVAL ---
Pre-Assessment Diagnosis/Proposed Procedure Planned Operative Procedure(s): ercp Anesthesia History Anesthesia History - community program assistant: Anesthesia History - community program assistant Hx Hospitalization No 09/22/25 14:09 Any Problems With Anesthesia No 09/22/25 14:09 Cholinesterase deficiency No 09/22/25 14:09 You/Your Family Experience No 09/22/25 14:09 fever (hyperthermia) with Relationship Recent Exposure to Contagious No 08/07/25 11:43 Disease Does patient have nerve No 09/22/25 14:09 stimulator Patient instructed to have device shut off --Does patient have Pacemaker or ICD? When Was Last Pacemaker Check QUESTION #4 FULL TEXT: You/Your Family Experience fever (hyperthermia) with Anesthesia Last Oral Intake Last Oral intake: Last Oral Intake NPO since Meds taken in AM with sips of water? Meds patient instructed to take am of surgery PONV PONV - community program assistant: PONV - community program assistant Female Yes 09/22/25 14:09 HX of Motion Sickness No 09/22/25 14:09 HX of N/V After Surgery No 09/22/25 14:09 Non-Smoker Yes 09/22/25 14:09 Duration of Surgery greater No 09/22/25 14:09 than 60 minutes Number of Risk Factors 2 09/22/25 14:09 PONV Score Moderate Risk 09/22/25 14:09 Height & Weight Height & Weight: Anesthesia: Height & Weight Height 5 ft 5 in 08/07/25 11:43 Respiratory Assessment Respiratory Assessment - community program assistant: Respiratory Tract Infection Hx - community program assistant Hx Respiratory Tract Infection No 09/22/25 14:09 STOP Sleep Apnea STOP Sleep Apnea - community program assistant: STOP Sleep Apnea - community program assistant Hx Hypertension No 09/22/25 14:09 Hx Sleep Apnea Yes 09/22/25 14:09 CPAP Yes 09/22/25 14:09 BIPAP No 09/22/25 14:09 Do you snore loudly (louder than talking or can be heard Do you often feel tired/ fatigued/ sleepy during daytime? Has anyone observed you stop breathing during sleep? STOP Results Positive 09/22/25 14:09 QUESTION #5 FULL TEXT : Do you snore loudly (louder than talking or can be heard through closed doors)? 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 Specify any problems Hx of Preganancy in last 3 N/A 09/22/25 14:09 Months Nurse Filling Out Transfusion NBUCHER 09/22/25 14:09 & Questions: Date: 09/22/25 09/22/25 14:09 Time: 14:11 09/22/25 14:09 Patient unable to answer at this time (ie. confused, unrespo /Reproduction History /Reproductive History - community program assistant: /Reproductive Hx- community program assistant Hx Now No 09/22/25 14:09 Gestational Age (in weeks): EDC: Hx Hx Para Hx Section SAB No 09/22/25 14:09 Does the father of the baby or his family experience fever w Father of the baby Malignant Hypertension history comment PFSH Medical History (Updated 09/22/25 @ 14:54 by Izabella Dunlap) History of Holter monitoring Cardiology follow-up encounter Wears contact lenses Wears glasses Former smoker Sleep apnea History of echocardiogram Cholecystitis, acute with cholelithiasis CPAP (continuous positive airway pressure) dependence Allergy/AdvReac Type Severity Reaction Status Date / Time No Known Allergies Allergy Verified 09/22/25 14:08 Family History Maternal Grandfather Colon cancer Grandfather Stomach cancer Surgical History (Updated 09/22/25 @ 14:12 by Izabella Dunlap) History of ERCP Status post laparoscopic cholecystectomy Social History household members: spouse Smoking Status: Former smoker alcohol intake: never substance use type: does not use what type of physical activity do you participate in: none Audit: Pertinent Findings Pertinent Findings EKG Perinent findings: 07/21/2025. Normal sinus rhythm with sinus arrhythmia. Minor nonspecific T wave abnormality. Echo (EF%) pertinent findings: 07/20/2025. EF is 60%. No aortic stenosis is noted. PA pressure is probably normal. Consult pertinent findings: 07/21/2025. Dr. Bell. 1. Abnormal EKG-inverted T waves in anterior and inferior leads noted on yesterday's EKG. Echocardiogram was normal. Likely secondary to hyperadrenergic state with acute cholecystitis and abdominal pain. Largely resolved this morning. Now only with nonspecific T wave changes. Recommendation Anesthesia Recommendation Anesthesia recommendation: OPTIMIZED for anesthesia
[2025-09-27] VITALS (9 sets, daily range): BP systolic 116–137; BP diastolic 67–82; PULSE 48–68; RESP 12–16; TEMP 36.3–36.9; O2SAT 95–97; BMI 35.6
[2025-09-27 10:38] LABS: Internal QC Validated? YES +Cl - CLEAR BKGD; Pregnancy, Urine Negative Negative; Record Kit Lot#,Urine Preg 0000980607
--- NOTE | 2025-09-27 10:40 | EKG12_ITS ---
Test Reason : PRE OP Blood Pressure : */* mmHG Vent. Rate : 59 BPM Atrial Rate : 59 BPM P-R Int : 160 ms QRS Dur : 84 ms QT Int : 426 ms P-R-T Axes : 40 30 20 degrees QTcB Int : 421 ms Sinus bradycardia with sinus arrhythmia Nonspecific T wave abnormality Abnormal ECG When compared with ECG of 21-Jul-2025 09:36, No significant change was found Confirmed by AN EPPS, JHONNY ([id number]), editor continuity and script WILFREDO ALVARES ([id number]) on 09/28/2025 8:57:26 AM Referred By: Chuckie Ochoa Confirmed By: JHONNY NOLAN MD
[2025-09-27] MEDS: Lactated Ringers 1,000 ML 15 ML IV (11:02)
--- NOTE | 2025-09-27 11:10 | PRE.ANES_ITS ---
ASA Classification* ASA Classification ASA Classification: 2 Assessment & Plan Anesthesia* Anesthesia Assessment Anesthesia Assessment: Discussed sedation and/or anesthesia options, risks, benefits, and alternatives with patient/parents/legal guardian/POA. Questions invited. The patient/parents/legal guardian/POA seems to understand and agrees to proceed with anesthesia plan. Reviewed the physical assessment, medical history, allergy history and patient home medications list prior to surgery/procedure/anesthetic and documented any changes. Performed airway and anesthesia risk assessments. Anesthesia Type Anesthesia Type: MAC History Source History Obtained from:: Patient and Chart Anesthesia Focused Assessment* Temperature: 98.3 F Pulse Rate: 65 Blood Pressure: 119/67 Respiratory Rate: 12 Pulse Ox: 97 Oxygen Delivery Method: Room Air Airway Assessment Mouth opens: >3 cm Mallampati Score: III Teeth Condition: Caps/Crowns (Patient has a crown. It is tight.) Neck Range of motion (ROM): Full ROM Labs Anesthesia Preop lab: CBC WBC, (4.4-11.0) 14.5 K/mm3 H 07/21/25, 04:50 RBC, (4.2-5.4) 3.67 M/mm3 L 07/21/25, 04:50 Hgb, (12.0-15.0) 10.2 g/dL L 07/21/25, 04:50 Hct, (37-47) 30.9 % L 07/21/25, 04:50 Plt Count, (150-450) 271 K/mm3 07/21/25, 04:50 CHEMISTRY Potassium, (3.3-5.1) 3.4 mmol/L 07/21/25, 04:50 Sodium, (133-145) 136 mmol/L 07/21/25, 04:50 BUN, (4-19) 4 mg/dL 07/21/25, 04:50 Creatinine, (0.70-1.20) 0.58 mg/dL L 07/21/25, 04:50 Glucose, (70-99) 127 mg/dL H 07/21/25, 04:50 COAG Urine Test Negative Negative Today, 10:25 Pre-Assessment Diagnosis/Proposed Procedure Planned Operative Procedure(s): ercp Anesthesia History 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 When Was Last Pacemaker Check QUESTION #4 FULL TEXT: You/Your Family Experience fever (hyperthermia) with Anesthesia Last Oral Intake Last Oral intake: Last Oral Intake NPO since 23:30 09/27/25 10:52 Meds taken in AM with sips of No 09/27/25 10:52 water? Meds patient instructed to take am of surgery PONV PONV - hard metals hand engraver: PONV - hard metals hand engraver Female Yes 09/22/25 14:09 HX of Motion Sickness No 09/22/25 14:09 HX of N/V After Surgery No 09/22/25 14:09 Non-Smoker Yes 09/22/25 14:09 Duration of Surgery greater No 09/22/25 14:09 than 60 minutes Number of Risk Factors 2 09/22/25 14:09 PONV Score Moderate Risk 09/22/25 14:09 Height & Weight Height & Weight: Anesthesia: Height & Weight Height 5 ft 5 in 09/27/25 10:52 Weight: 97 kg 09/27/25 10:52 Body Mass Index (BMI) 35.6 09/27/25 10:52 Respiratory Assessment Respiratory Assessment - hard metals hand engraver: Respiratory Tract Infection Hx - hard metals hand engraver Hx Respiratory Tract Infection No 09/22/25 14:09 STOP Sleep Apnea STOP Sleep Apnea - hard metals hand engraver: STOP Sleep Apnea - hard metals hand engraver Hx Hypertension No 09/22/25 14:09 Hx Sleep Apnea Yes 09/22/25 14:09 CPAP Yes 09/22/25 14:09 BIPAP No 09/22/25 14:09 Do you snore loudly (louder than talking or can be heard Do you often feel tired/ fatigued/ sleepy during daytime? Has anyone observed you stop breathing during sleep? STOP Results Positive 09/22/25 14:09 QUESTION #5 FULL TEXT : Do you snore loudly (louder than talking or can be heard through closed doors)? Tobacco Use History Tobacco Use History - hard metals hand engraver: Tobacco Use History - hard metals hand engraver Tobacco Use Smoking Status Former smoker 09/22/25 14:09 Hx Tobacco Use No 09/22/25 14:09 Years Smoking Packs Smoked per Day Smoking Cessation Date was Yes - quit smoking within 15 09/22/25 14:09 within the last 15 years years Hx Smoking Cessation Date 12/10/24 09/22/25 14:09 Hx Smoking Cessation Counseling Hematologic Medial History Hematologic Hx - hard metals hand engraver: Hematologic Medical Hx - shoeshiner Hx of Blood Transfusion No 09/22/25 14:09 Hx of Transfusion in last 3 No 09/22/25 14:09 Months Date of Last Transfusion (if within last 3 months) Ever experience any problems No 09/22/25 14:09 with transfusion(s)? Specify any problems Hx of Preganancy in last 3 N/A 09/22/25 14:09 Months Nurse Filling Out Transfusion NBUCHER 09/22/25 14:09 & Questions: Date: 09/22/25 09/22/25 14:09 Time: 14:11 09/22/25 14:09 Patient unable to answer at this time (ie. confused, unrespo /Reproduction History /Reproductive History - hard metals hand engraver: /Reproductive Hx- hard metals hand engraver Hx Now No 09/22/25 14:09 Gestational Age (in weeks): EDC: Hx Hx Para Hx Section SAB No 09/22/25 14:09 Does the father of the baby or his family experience fever w Father of the baby Malignant Hypertension history comment Active Medications Active Medications: Current Medications Generic Name Dose Route Start Last Admin Trade Name Freq PRN Reason Stop Dose Admin Lactated Ringer's 1,000 mls @ 15 mls/hr 09/27/25 10:30 09/27/25 11:02 IV 15 mls/hr .Q48H VEE Administration PFSH Medical History History of Holter monitoring Cardiology follow-up encounter Wears contact lenses Wears glasses Former smoker Sleep apnea History of echocardiogram Cholecystitis, acute with cholelithiasis CPAP (continuous positive airway pressure) dependence Home Medications ?Medication ?Instructions ?Recorded ?Last Taken ?Type omega-3 fatty acids 2 cap PO DAILY 09/27/2509/09 History Allergy/AdvReac Type Severity Reaction Status Date / Time No Known Allergies Allergy Verified 09/27/25 10:51 Family History Maternal Grandfather Colon cancer Grandfather Stomach cancer Surgical History History of ERCP Status post laparoscopic cholecystectomy Social History household members: spouse Smoking Status: Former smoker alcohol intake: never substance use type: does not use what type of physical activity do you participate in: none Review of Systems (Anesthesia) ROS Narrative System reviewed and no additional complaints, except as documented.
--- NOTE | 2025-09-27 11:30 | FLU_PTH ---
PATIENT: CON ANN LOC: EN U#:[id number] AGE/SX: 30/F ROOM: RE09/27/[address]: Dr. Avtar Thomas DO : 1995 BED: DIS: 09/27/2025 SPEC #: [id number] RECD: 09/27/25 12:24 STATUS: BEATRIZ REBen #: [id number] BRYAN: 09/27/25 11:[address]: Avtar Thomas DEPT: CYTOLOGY RECD BY: Rashawn Basurto ENTERED: 09/27/25 13:48 SP TYPE: Fluid OTHR DR: JORDY Chang Tissues: A - Biliary tract, NOS Procedures: Special Stain Group II Surgery Specimen Level IV Cytospin Fluid HEADER OPERATION: ERCP with stent removal PRE-OP DIAGNOSIS: Bile leak, status post laparoscopic cholecystectomy TISSUE SUBMITTED: A- Biliary stent for cytology DIAGNOSIS CYTOLOGY A. Biliary stent, ERCP (cytospin, cellblock): - No malignant cells identified. - The specimen is of low cellularity. CYTOLOGY STUDY Slides are reviewed. CYTOLOGY GROSS A. Received is 14cm blue stent with 0.2 green fluid labeled with the patient's name and and designated per the requisition as Biliary stent. Submitted for cytology and cell block preparation. 09/27/2025 CPT: 40282,92825
--- NOTE | 2025-09-27 11:30 | PCM.HP.STD ---
HPI - General General Date of Admission: 09/27/25 Date of Service: 09/27/25 Chief Complaint: stent removal HPI Narrative CON ANN, is a 30 F who is status post a recent laparoscopic cholecystectomy for severe acute cholecystitis. She did develop a cystic duct leak following the procedure. This was treated by ERCP and stent earlier this week. She states that since the ERCP, her output from her VALERY drain has essentially went to only about 3 to 5 cc of fluid since. This was mostly serosanguineous. She states that she feels good. She denies any fevers or chills. [facility] Medical History History of Holter monitoring Cardiology follow-up encounter Wears contact lenses Wears glasses Former smoker Sleep apnea History of echocardiogram Cholecystitis, acute with cholelithiasis CPAP (continuous positive airway pressure) dependence Home Medications ?Medication ?Instructions ?Recorded ?Last Taken ?Type omega-3 fatty acids 2 cap PO DAILY 09/27/25 09/23/25 History Allergy/AdvReac Type Severity Reaction Status Date / Time No Known Allergies Allergy Verified 09/27/25 10:51 Family History Maternal Grandfather Colon cancer Grandfather Stomach cancer Surgical History History of ERCP Status post laparoscopic cholecystectomy Social History household members: spouse Smoking Status: Former smoker alcohol intake: never substance use type: does not use what type of physical activity do you participate in: none ROS Constitutional Constitutional: Denies fatigue, fever(s), poor appetite, weight gain or weight loss Gastrointestinal Gastrointestinal: Denies belching, bloating, change in bowel habits, change in stool character, chewing difficulty, coffee ground emesis, constipation, cramping, diarrhea, dyspepsia, dysphagia, early satiety, excessive flatus, fecal incontinence, heartburn, hematemesis, hematochezia, hemorrhoids, loose stools, melena, nausea, odynophagia, rectal bleeding, tenesmus, vomiting or weight changes Vital Signs Vital Signs Vital Signs: 09/27/25 10:52 09/27/25 10:52 09/27/25 10:52 Temperature 98.3 F Temperature Source Temporal Pulse Rate 65 Respiratory Rate 12 Respiratory Pattern Normal Blood Pressure 119/67 Blood Pressure Mean 84 Blood Pressure Source Monitor Blood Pressure Position Semi-Fowlers Blood Pressure Location Right Arm Baseline BP 119/67 Pulse Ox 97 Oxygen Delivery Method Room Air 09/27/25 11:20 Temperature 98.3 F Temperature Source Pulse Rate 65 Respiratory Rate 12 Respiratory Pattern Blood Pressure 119/67 Blood Pressure Mean Blood Pressure Source Blood Pressure Position Blood Pressure Location Baseline BP Pulse Ox 97 Oxygen Delivery Method Room Air Weight Weight: 213 lb 13.574 oz Body Mass Index (BMI) 35.6 Physical Exam Const alert, oriented x3, no apparent distress and healthy appearing General Appearance: cooperative GI normal to inspection, nondistended, normoactive bowel sounds, soft to palpation, non-tender and non-distended Percussion: normal to percussion Rectal Exam: deferred Results Lab / Micro Data Labs: Laboratory Results - last 24 hr 09/27/25 10:25: Urine Test Negative Assessment & Plan Assessment/Plan (1) Bile leak: (2) Status post laparoscopic cholecystectomy: PLAN: 29-year-old female status post a recent laparoscopic cholecystectomy for severe acute cholecystitis. She did develop a cystic duct leak following the procedure. This was treated by ERCP and stent earlier this week. She states that since the ERCP, her output from her VALERY drain has essentially went to only about 3 to 5 cc of fluid since. This was mostly serosanguineous. She states that she feels good. She denies any fevers or chills.
--- NOTE | 2025-09-27 11:51 | RAD_ITS ---
PROCEDURE: ERCP BILIARY/PANCREAS 09/27/2025 REASON FOR EXAM: ERCP TECHNIQUE: Procedure Code: RADERCP Modality: DX Procedure: ERCP BILIARY/PANCREAS. Fluoroscopic services provided for ERCP. 1 minute and 11 seconds 4 fluoroscopy. 22.77 mGy of radiation dose. 9 images were submitted. COMPARISON: Prior study dated August 08, 2025. FINDINGS: Intraoperative fluoroscopic services provided for ERCP. The common bile duct was cannulated. Mild degree of dilated duct. RAD/ERCP Biliary/Pancreas IMPRESSION: Fluoroscopic services provided for ERCP. Reading Location: [facility]
--- NOTE | 2025-09-27 12:29 | OP.ERCP_ITS ---
Patient Name: Sherice Matthews Procedure Date: 09/27/2025 11:40 AM Date of : 1995 Age: 30 Procedure: ERCP Indications: Follow-up of bile leak Providers: DO Franko Go MD: Godwin Chang Medicines: Monitored Anesthesia Care Patient Profile: This is a 30 year old female. Refer to note in patient chart for documentation of history and physical. Her most recent ERCP for biliary evaluation. She is status post laparoscopic cholecystectomy. Complications: No immediate complications. Procedure: Pre-Anesthesia Assessment: - Prior to the procedure, a History and Physical was performed, and patient medications and allergies were reviewed. The patient is competent. The risks and benefits of the procedure and the sedation options and risks were discussed with the patient. All questions were answered and informed consent was obtained. Patient identification and proposed procedure were verified by the physician in the pre-procedure area. Mental Status Examination: alert and oriented. Airway Examination: normal oropharyngeal airway and neck mobility. Respiratory Examination: clear to auscultation. CV Examination: normal. Prophylactic Antibiotics: The patient does not require prophylactic antibiotics. Prior Anticoagulants: The patient has taken no anticoagulant or antiplatelet agents except for NSAID medication. ASA Grade Assessment: II - A patient with mild systemic disease. After reviewing the risks and benefits, the patient was deemed in satisfactory condition to undergo the procedure. The anesthesia plan was to use monitored anesthesia care (MAC). Immediately prior to administration of medications, the patient was re-assessed for adequacy to receive sedatives. The heart rate, respiratory rate, oxygen saturations, blood pressure, adequacy of pulmonary ventilation, and response to care were monitored throughout the procedure. The physical status of the patient was re-assessed after the procedure. After obtaining informed consent, the scope was passed under direct vision. Throughout the procedure, the patient's blood pressure, pulse, and oxygen saturations were monitored continuously. The Duodenoscope was introduced through the mouth, and advanced to the duodenum and used to inject contrast into the bile duct. The ERCP was accomplished without difficulty. The patient tolerated the procedure well. Scope In: 12:00:11 PM Scope Out: 12:10:25 PM Total Procedure Duration Time 0 hours 10 minutes 14 seconds Findings: A biliary stent was visible on the taper and floater film. The esophagus was successfully intubated under direct vision. The scope was advanced to a normal major papilla in the descending duodenum without detailed examination of the pharynx, larynx and associated structures, and upper GI tract. The upper GI tract was grossly normal. A long 0.025 inch Jagwire was passed into the biliary tree. The short-nosed traction sphincterotome was passed over the guidewire and the bile duct was then deeply cannulated. Contrast was injected. I personally interpreted the bile duct images. There was brisk flow of contrast through the ducts. Image quality was adequate. Contrast extended to the entire biliary tree. Opacification of the entire biliary tree except for the gallbladder, common bile duct and left and right hepatic ducts and all intrahepatic branches was successful. The maximum diameter of the ducts was 10 mm. The lower third of the main bile duct contained one stone, which was 6 mm in diameter. The entire biliary tree was diffusely dilated, with a stone causing an obstruction. The largest diameter was 10 mm. A 5 mm biliary sphincterotomy was made with a traction (standard) sphincterotome using ERBE electrocautery. There was no post-sphincterotomy bleeding. The biliary tree was swept with a 12 mm balloon starting at the upper third of the main bile duct, middle third of the main bile duct, lower third of the main duct, bifurcation, left intrahepatic duct(s), left main hepatic duct and right intrahepatic duct(s). Sludge was swept from the duct. All stones were removed. One stent was removed from the biliary tree using a snare and sent for cytology. Impression: - The entire biliary tree was dilated, with a stone causing an obstruction. - Choledocholithiasis was found. Complete removal was accomplished by biliary sphincterotomy and balloon extraction. - A biliary sphincterotomy was performed. - The biliary tree was swept. - One stent was removed from the biliary tree. Procedure Code(s): --- Professional --- 98261, Endoscopic retrograde cholangiopancreatography (ERCP); with removal of foreign body(s) or stent(s) from biliary/pancreatic duct(s) 92929, Endoscopic retrograde cholangiopancreatography (ERCP); with removal of calculi/debris from biliary/pancreatic duct(s) 44252, Endoscopic retrograde cholangiopancreatography (ERCP); with sphincterotomy/papillotomy 16576, 26, Endoscopic catheterization of the biliary ductal system, radiological supervision and interpretation CPT copyright 2021 [employer]. All rights reserved. The codes documented in this report are preliminary and upon tubing mill operator review may be revised to meet current compliance requirements. Avtar Thomas DO 09/27/2025 12:28:21 PM This report has been signed electronically. Number of Addenda: 0 Note Initiated On: 09/27/2025 11:40 AM
--- NOTE | 2025-09-27 12:29 | OP.PROVAT_ITS ---
09/27/2025 Godwin Chang Re : ERCP procedure for Sherice Matthews Dear Don This procedure was performed on Saturday, September 27, 2025. My impressions and recommendations are as follows: Impressions : - The entire biliary tree was dilated, with a stone causing an obstruction. - Choledocholithiasis was found. Complete removal was accomplished by biliary sphincterotomy and balloon extraction. - A biliary sphincterotomy was performed. - The biliary tree was swept. - One stent was removed from the biliary tree. Recommendations : My findings are described in the full procedure note, which is enclosed. If I can be of further assistance, please feel free to contact me at . Sincerely, Avtar Thomas, 09/27/2025 12:28:21 PM This report has been signed electronically.
--- NOTE | 2025-09-27 12:29 | PCM.POST.ANE ---
Anesthesia: Postop Eval I Current Vital Signs Temperature: 98.5 F Pulse Rate: 68 Blood Pressure: 120/81 Respiratory Rate: 16 Pulse Ox: 96 Oxygen Delivery Method: Room Air Assessment Airway patent: Yes Spontaneous unlabored respirations: Yes Mental status: Awake and Calm nausea: No Vomiting: No Anesthesia Complication: No Fluid Hydration Crystalloid volume administer (ml): 700 Total IV fluid infused: 700 Progress Note Anesthesia document: Postop Eval 1 completed: Yes
--- NOTE | 2025-09-27 16:35 | PCM.POSTANE2 ---
Anesthesia Postop Eval I Sum Postop Eval Completion status Anesthesia document: Postop Eval 1 completed: Yes Anesthesia Postop Eval I Summary Anesthesia Postop Eval I Summary: Anesthesia Postop Eval I: Assessment Summary Airway patent Yes 09/27/25 12:30 [email or web address] Spontaneous unlabored Yes 09/27/25 12:30 [email or web address] respirations Mental status Awake,Calm 09/27/25 12:30 [email or web address] nausea No 09/27/25 12:30 [email or web address] Vomiting No 09/27/25 12:30 [email or web address] Anesthesia Postop Eval I: Fluid Summary Crystalloid volume administer 700 09/27/25 12:30 [email or web address] (ml) Colloids volume administered ( ml) Blood Product volume administered (ml) Total IV fluid infused 700 09/27/25 12:30 [email or web address] Anesthesia Postop Eval I: Summary Notes Anesthesia Complication No 09/27/25 12:30 [email or web address] Anesthesia Complication Comment: Post-operative progress note Anesthesia: Postop Eval II Evaluation Mental status: Awake and Calm Pain Level: 0 nausea: No Vomiting: No
== END 2025-09-27 13:30 | disposition home or self-care (01) ==
LOC: EN 10:15 → AC 10:16
PROVIDERS: Anesthesiology; PCP Physician Assistant; Referring Provider Physician Assistant; Visit Provider Internal Medicine Gastroenterology
PROC: (CPT 43260; principal; 2025-09-27 11:10)
DX: Z46.59 Encounter for fitting and adjustment of other gastrointestinal appliance and device (principal); Z90.49 Acquired absence of other specified parts of digestive tract; Z87.891 Personal history of nicotine dependence; K80.51 Calculus of bile duct without cholangitis or cholecystitis with obstruction
CPT/HCPCS: 43262; 43264; 43275; 74330; 76000; 81025; 88108; 88305; 88313; 93005; J2405